=== PATIENT | male | born 1955 | race American Indian/Alaskan Native ===

== ENCOUNTER 2017-04-16 18:32 | Inpatient (IN) | payer MEDICAID ==
[2017-04-16 19:29] LABS: Basophils % (Auto) 0.6 % (0.0-1.8); Eosinophils % (Auto) 2.5 % (0.0-4.3); Hematocrit 27.4 % (35.5-45.6); Hemoglobin 9.3 gm/dl (11.8-15.2); Mean Corpuscular HGB Conc 34 % (32-34); Mean Corpuscular Hemoglobin 30 pg (28-32); Mean Corpuscular Volume 89 fl (84-94); Red Blood Count 3.08 M/mm3 (3.65-5.03); White Blood Count 3.1 K/mm3 (4.5-11.0)
[2017-04-16 19:39] LABS: INR 3.77 (0.87-1.13)
--- NOTE | 2017-04-16 19:39 | Emergency Department Report ---
ED Chest Pain HPI - General Chief Complaint: Chest Pain Stated Complaint: CHEST PAIN Time Seen by Provider: 04/16/17 19:12 Source: patient, EMS Mode of arrival: Stretcher Limitations: No Limitations - History of Present Illness MD Complaint: chest pain -: Gradual Onset: during rest Pain Location: left chest Pain Radiation: neck Severity: mild Severity scale (0 -10): 3 Quality: tightness Consistency: constant Improves With: nothing Worsens With: eating re: nausea - Related Data Allergies Allergy/AdvReac Type Severity Reaction Status Date / Time codeine Allergy Unknown Verified 04/16/17 18:44 Heart Score - HEART Score History: Highly suspicious EKG: Non-specific Age: 45-65 Risk factors: > 3 risk factors or hx of atherosclerotic disease Troponin: 1-3x normal limit HEART Score: 7 - Critical Actions Critical Actions: 4-6 pts:12-16.6% risk of adverse cardiac event. Should be admitted ED Review of Systems ROS: Stated complaint: CHEST PAIN Other details as noted in HPI Comment: All other systems reviewed and negative Cardiovascular: chest pain, dyspnea on exertion Gastrointestinal: nausea Musculoskeletal: as per HPI ED Past Medical Hx - Past Medical History Previous Medical History?: Yes Hx Hypertension: Yes Hx Congestive Heart Failure: Yes Hx Diabetes: Yes Hx GERD: Yes Hx Renal Disease: Yes (dialysis m,w,f) Hx HIV: Yes Additional medical history: iron deficiency anemia. hyperlipidemia. end stage renal disease. alcoholic liver disease - Surgical History Past Surgical History?: Yes Additional Surgical History: fistula right upper arm - Social History Smoking Status: Never Smoker Substance Use Type: None ED Physical Exam - General Limitations: No Limitations General appearance: alert, in no apparent distress - Head Head exam: Present: atraumatic - Eye Eye exam: Present: normal appearance - ENT ENT exam: Present: normal exam - Neck Neck exam: Present: normal inspection - Cardiovascular Cardiovascular Exam: Present: regular rate, normal rhythm - GI/Abdominal GI/Abdominal exam: Present: soft - Neurological Exam Neurological exam: Present: alert, oriented X3 ED Course Vital Signs 04/16/17 04/16/17 18:37 20:20 Temperature 98.0 F Pulse Rate 75 89 Respiratory 18 18 Rate Blood Pressure 111/70 O2 Sat by Pulse 100 98 Oximetry - Reevaluation(s) Reevaluation #1: 04/16/17 21:34 Patient continued to have pain, we will admit for observation and cardiac event ruled out. ED Medical Decision Making - Lab Data Result diagrams: 04/16/17 19:08 04/16/17 19:08 Critical care attestation.: If time is entered above; I have spent that time in minutes in the direct care of this critically ill patient, excluding procedure time. ED Disposition Clinical Impression: Non-STEMI (non-ST elevated myocardial infarction) Disposition: - OP ADMIT IP TO THIS HOSP Is pt being admited?: Yes Does the pt Need Aspirin: Yes Condition: Stable Referrals: PRIMARY CARE,MD [Primary Care Provider] - 3-5 Days
[2017-04-16 19:45] LABS: Partial Thromboplastin Time 60.8 Sec. (24.2-36.6)
[2017-04-16 20:15] LABS: Platelet Count 93 K/mm3 (140-440)
[2017-04-16 20:21] LABS: BUN/Creatinine Ratio 4.07; Calcium 7.9 mg/dL (8.4-10.2); Potassium 4.8 mmol/L (3.6-5.0)
[2017-04-16] MEDS ORDERED: ASPIRIN PO ONE (21:34)
--- NOTE | 2017-04-16 22:02 | History and Physical Report ---
History of Present Illness Date of examination: 04/16/17 Date of admission: 04/16/17 Chief complaint: Chest pain History of present illness: Patient is 61-year-old with history of hypertension, HIV, diabetes and end- stage renal disease on dialysis Saturday. He presents with chest pain. Chest pain is 10 out of 10, left-sided, like a pressure. There was no radiation. Chest pain worse on exertion. Pain continued for several hours therefore brought to ED. He is a resident at a longterm facility and was therefore brought to the emergency department for further evaluation. His troponins was elevated he was given aspirin and is being admitted for further management. Past History Past Medical History: diabetes, GERD, heart failure, HIV/AIDS, hypertension Past Surgical History: Other (fistula for dialysis) Social history: full code, other (lives in Jail). denies: smoking, alcohol abuse Family history: no significant family history Medications and Allergies Allergies Allergy/AdvReac Type Severity Reaction Status Date / Time codeine Allergy Unknown Verified 04/16/17 18:44 Home Medications Medication Instructions Recorded Confirmed Last Taken Type Amiodarone [Cordarone 200 MG TAB] 200 mg PO QDAY 04/16/17 04/16/17 Unknown History Aspirin [Aspirin BABY CHEW TAB] 81 mg PO QDAY 04/16/17 04/16/17 Unknown History AtorvaSTATin [Lipitor] 40 mg PO QHS 04/16/17 04/16/17 Unknown History Azithromycin [Zithromax TAB] 600 mg PO QWEEK 04/16/17 04/16/17 Unknown History Benzonatate [Tessalon Perles] 100 mg PO Q8HR PRN 04/16/17 04/16/17 Unknown History Carvedilol [Coreg] 25 mg PO BID 04/16/17 04/16/17 Unknown History Cinacalcet HCl [Sensipar] 60 mg PO DAILY 04/16/17 04/16/17 Unknown History Esomeprazole Magnesium [NexIUM] 40 mg PO QDAY 04/16/17 04/16/17 Unknown History Folic Acid [Folvite] 1 mg PO QDAY 04/16/17 04/16/17 Unknown History Hydroxyzine HCl 25 mg PO DAILY PRN 04/16/17 04/16/17 Unknown History ISOSORBIDE MONOnitrate [Imdur ER] 30 mg PO DAILY 04/16/17 04/16/17 Unknown History Ipratropium/Albuterol Sulfate 1 ampul IH Q6HR PRN 04/16/17 04/16/17 Unknown History [DUONEB *Not for PRN Use*] Lisinopril [Zestril TAB] 10 mg PO QDAY 04/16/17 04/16/17 Unknown History Multivitamin Tab [Multiple Vitamin 1 each PO QDAY 04/16/17 04/16/17 Unknown History TAB (Theragran)] Sennosides [Senna] 8.6 mg PO QHS 04/16/17 04/16/17 Unknown History Sevelamer Carbonate [Renvela] 800 mg PO TIDWM 04/16/17 04/16/17 Unknown History Sulfamethoxazole/Trimethoprim 1 each PO 3XW 04/16/17 04/16/17 Unknown History [Bactrim 400-80 mg] Warfarin [Coumadin] 5 mg PO QDAY 04/16/17 04/16/17 Unknown History amLODIPine [Norvasc] 10 mg PO DAILY 04/16/17 04/16/17 Unknown History hydrALAZINE [Apresoline TAB] 100 mg PO Q8HR 04/16/17 04/16/17 Unknown History traMADol [Ultram] 50 mg PO Q6HR PRN 04/16/17 04/16/17 Unknown History Review of Systems All systems: negative (no fever, no cough, no syncope, no abdominal pain,no urinary symptoms. All other systems reviewed and are negative) Exam - Physical Exam Narrative exam: Gen appearance: not in acute distress HEENT: normocephalic atraumatic Neck:supple, no JVD Lungs: clear to auscultation bilaterally, no crackles or wheezes Heart :S1 and S2 regular, no murmurs, rubs or gallop Abdomen: Soft, non-tender, non-distended, normal bowel sounds Extremities :no edema no clubbing or cyanosis Neuro: Awake alert oriented 3, no focal neurological signs Psych: normal mood - Constitutional Vitals: Temp Pulse Resp BP Pulse Ox 98.0 F 89 18 111/70 98 04/16/17 18:37 04/16/17 20:20 04/16/17 20:20 04/16/17 18:37 08/08/17 20:20 Results - Labs CBC & Chem 7: 04/16/17 19:08 04/16/17 19:08 Labs: Abnormal lab results 04/16/17 04/16/17 04/16/17 Range/Units 19:08 19:08 19:08 WBC 3.1 L (4.5-11.0) K/mm3 RBC 3.08 L (3.65-5.03) M/mm3 Hgb 9.3 L (11.8-15.2) gm/dl Hct 27.4 L (35.5-45.6) % RDW 16.0 H (13.2-15.2) % Plt Count 93 L (140-440) K/mm3 [place] % (Auto) 15.1 H (0.0-7.3) % Lymph # 0.9 L (1.2-5.4) K/mm3 Seg Neutrophils # 1.7 L (1.8-7.7) K/mm3 PT 39.3 H (12.2-14.9) Sec. INR 3.77 H (0.87-1.13) APTT 60.8 H* (24.2-36.6) Sec. Chloride 96.0 L (98-107) mmol/L BUN 33 H (9-20) mg/dL Creatinine 8.1 H (0.8-1.5) mg/dL Calcium 7.9 L (8.4-10.2) mg/dL Troponin T 0.681 H* (0.00-0.029) ng/mL HDL Cholesterol 39 L (40-59) mg/dL Assessment and Plan Chest pain with elevated Troponin. To rule out acute coronary syndrome/NSTEMI. Admit to telemetry. Aspirin given. Add Nitropaste every 6 hours. Obtain stress test in the morning if okay with cardiology. Cardiology consulted. Elevated Troponin. may be due to ESRD. To rule out NSTEMI ESRD on hemodialysis. He goes for dialysis Wednesdays and Fridays. Consult nephrology for management of end-stage renal disease. HIV infection. Supratherapeutic INR of 3.77. Hold Coumadin and resume when INR becomes therapeutic. Diabetes mellitus type II. Check fingerstick glucose before every meal and at bedtime. Chronic CHF. Resume Coreg.Obtain echocardiogram Full CODE STATUS
[2017-04-16] MEDS ORDERED: DULCOLAX PR PRN (22:12)
[2017-04-16] MEDS ORDERED: TYLENOL PO PRN (22:12)
[2017-04-16] MEDS ORDERED: ZOFRAN IV PRN (22:12)
[2017-04-16] MEDS ORDERED: ASPIRIN ONE (22:52)
[2017-04-16] MEDS ORDERED: TYLENOL ONE (22:53)
[2017-04-16] MEDS ORDERED: ULTRAM PO PRN (23:36)
[2017-04-16] MEDS ORDERED: DUONEB *Not for PRN Use IH (23:36)
[2017-04-16] MEDS ORDERED: HYDROXYZINE HCL 25 MG PO PRN (23:36)
[2017-04-16] MEDS ORDERED: TESSALON PERLES PO PRN (23:36)
[2017-04-16] MEDS ORDERED: ATARAX PO PRN (23:52)
[2017-04-16] MEDS ORDERED: PROVENTIL IH PRN (23:56)
--- NOTE | 2017-04-17 01:30 | Admit Criteria Form ---
Admission Criteria Documentation: MYOCARDIAL INFARCTION Clinical Indications for Admission to Inpatient Care (Place 'X' for any and all applicable criteria): Admission is indicated for 1 or more of the following (1)(2)(3)(4): [X]I. Acute MT [ ]II. Contraindications and/or Inappropriate clinical situations for Observational Care in patients with Myocardial Infarction, when ANY ONE of the following is required: [ ]a) Patient with High risk of cardiac embolism (e.g, patients with previous cardiac embolism, LVEF < 40%, age >75 and patients with prosthetic valve) 18 [ ]b) Patient with Moderate risk including DM patient, CAD and patient aged 65-75 18 [ ]c) Patient with any change in cardiac biomarker especially troponin should be managed as high risk in an inpatient setting 19 [ ]d) Physician judgement irrespective of ECG and other diagnostic findings 20 [ ]III.General contraindications and/or Inappropriate clinical situations for Observational Care in patients with Myocardial Infarction, when ANY ONE of the following is required: [ ]a) Prediction of prolongation of LOS based on ANY ONE of the following may be considered as a contraindication for observational care 2, 3, 4, 5, 6, 7, 8, 9, 10, 11 [ ]i) Age > 65 yrs. [ ]ii) Patient arriving by ambulance [ ]iii) Patient with high acuity [ ]iv) Patient requiring vital sign monitoring [ ]v) Patient on IV medication [ ]b) Systolic blood pressures greater than or equal to 180mmHg 3,12 [ ]c) Patient with altered mental status including delirium and other alteration of consciousness, (3) [ ]d) Patient whose discharge disposition will be to a [facility] home or rehabilitation home should not be managed in Emergency Department Observation Unit. CMS rule requires 3 days hospital stay before such placement. 3,13 [ ]e) Patient with failure to thrive due to broad array of etiologies 3 ,16,17 [ ]f) Inability to ambulate 3,14 Extended stay beyond goal length of stay may be needed for (1)(18)(20)(24)(25): [ ]a) Hemodynamic instability, persisting symptoms after intensive medical management, or recurring severe, prolonged symptoms [ ]b) Intravascular procedural complications such as acute vessel closure, stent thrombosis, stent malposition, or vessel dissection (26)(27)(28) [ ]c) Extravascular procedural complications such as retroperitoneal hematoma , pericardial effusion, or cardiac tamponade [ ]d) Entry site complications causing bleeding, hematoma or distal ischemia and requiring ongoing monitoring, surgical repair or surgical thrombectomy. Dangerous arrhythmia [ ]e) Complicated percutaneous coronary intervention (e.g., unsuccessful percutaneous coronary intervention or percutaneous coronary intervention of non- [place] vessel) [ ]f) Urgent or emergent surgery for complications of MT (e.g., ventricular rupture, valvular insufficiency) [ ]g) Surgical revascularization via coronary artery bypass graft [ ]h) Heart failure (e.g., pulmonary edema) [ ]i) Unstable pulmonary comorbidities, including COPD or pneumonia (31) [ ]j) Acute renal failure The original [employer] content created by [employer] has been revised. The portions of the content which have been revised are identified through the use of italic text or in bold, and [employer] has neither reviewed nor approved the modified material. All other unmodified content is copyright [facility] [employer] Please see references footnoted in the original [facility] edition 2016 Admission Criteria Met: Yes
[2017-04-17] MEDS ORDERED: SODIUM CHLORIDE FLUSH SYRINGE 10 ML IV PRN (02:18)
[2017-04-17 05:42] LABS: Hematocrit 26.4 % (35.5-45.6); Mean Corpuscular HGB Conc 34 % (32-34); Mean Corpuscular Hemoglobin 30 pg (28-32); Mean Corpuscular Volume 89 fl (84-94); Red Blood Count 2.97 M/mm3 (3.65-5.03); White Blood Count 2.7 K/mm3 (4.5-11.0)
[2017-04-17 05:48] LABS: Platelet Count 94 K/mm3 (140-440)
[2017-04-17 05:55] LABS: INR 3.96 (0.87-1.13)
[2017-04-17 06:03] LABS: Partial Thromboplastin Time 61.5 Sec. (24.2-36.6)
[2017-04-17 06:17] LABS: BUN/Creatinine Ratio 4.08; Calcium 7.5 mg/dL (8.4-10.2); Potassium 4.2 mmol/L (3.6-5.0)
[2017-04-17] MEDS: NITRO-BID 2% TP SCH ×4 (06:52→17:25)
[2017-04-17 06:54] LABS: Anisocytosis 1+; Blastocytes % (Manual) 0 %; Diff Status Complete; Platelet Estimate Consistent w Auto
--- NOTE | 2017-04-17 07:27 | XRay Report ---
AP CHEST: HISTORY: chest pain No comparison. There is mild cardiomegaly with normal pulmonary vascularity. The lungs are clear. No pleural effusion or pneumothorax. Left subclavian vascular stent is noted. The bony structures are intact. IMPRESSION: Mild cardiomegaly. Lungs clear.
[2017-04-17] MEDS: RENVELA PO SCH ×4 (08:53→17:08)
[2017-04-17] MEDS ORDERED: NON-FORMULARY (Esomeprazole Magnesium [Nexium] 40 MG) PO SCH (10:00)
[2017-04-17] MEDS ORDERED: BACTRIM DS PO SCH (10:00)
[2017-04-17] MEDS ORDERED: NON-FORMULARY (Cinacalcet Hcl [Sensipar] 60 MG) PO SCH (10:00)
[2017-04-17] MEDS ORDERED: TRIMETHOPRIM PO SCH (10:00)
[2017-04-17] MEDS ORDERED: SULFAMETHOXAZOLE PO SCH (10:00)
[2017-04-17] MEDS ORDERED: LEXISCAN IV ONE ×2 (11:20→11:24)
--- NOTE | 2017-04-17 11:49 | Discharge Summary ---
Providers - Providers Date of Admission: 04/16/17 22:12 Date of discharge: 04/18/17 Attending physician: ERIK ARAYA 04/16/17 22:17 Consult to Physician [CONS] Routine Consulting Provider: KWASI JIMÉNEZ Reason For Exam: Chest pain, elevated Troponin, on dialysis Place consult to:: Dr. Jiménez Notified:: Kerri SCHUSTER Phone number called:: Was contact made?: Yes If yes, spoke with:: [facility] Time called:: 08:00 Consult to Physician [CONS] Routine Consulting Provider: ALEX FAITH Reason For Exam: ESRD on dialysis Place consult to:: Dr. Faith Notified:: Kerri SCHUSTER Phone number called:: Was contact made?: Yes If yes, spoke with:: [facility] Time called:: 09:26 04/17/17 Consult to Cardiac Rehabilitation [CONS] Routine Reason For Exam: Phase I Primary care physician: RUTH BAUER MD Hospitalization Reason for admission: cp Condition: Stable Hospital course: Patient is 61-year-old with history of hypertension, HIV, diabetes and end- stage renal disease on dialysis Saturday who presented with chest pain described as 10 out of 10 intensity, left-sided and of a pressure quality. Patient denies radiation. Chest pain worse on exertion. Pain continued for several hours prior to admission therefore brought to ED. He is a resident at a [place] [facility] facility. Patient was noted to have elevated troponin. However, patient does have a history of ESRD which is likely etiology of the elevated troponin. Patient was seen by cardiology in consultation. Patient underwent stress thallium and echocardiogram. Disposition: TO HOME OR SELFCARE Core Measure Documentation - Palliative Care Palliative Care/ Comfort Measures: Not Applicable - Core Measures Any of the following diagnoses?: none Exam - Constitutional Vitals: Temp Pulse Resp BP Pulse Ox 97.6 F 72 18 159/71 100 04/17/17 08:00 04/17/17 08:00 04/17/17 08:00 04/17/17 08:00 04/17/17 08:00 Plan Activity: no restrictions Weight Bearing Status: Full Weight Bearing Follow up with: PRIMARY MD LIZETTE [Primary Care Provider] - 3-5 Days Forms: Warfarin Discharge Instruction Prescriptions: oxyCODONE /ACETAMINOPHEN [Percocet 5/325] 1 tab PO Q4HR #15 tab Pantoprazole [Protonix] 40 mg PO QDAY #30 tablet
--- NOTE | 2017-04-17 11:51 | Progress Note ---
Assessment and Plan Assessment and plan: Chest pain with elevated Troponin. Cont. to rule out acute coronary syndrome/ NSTEMI. Continue telemetry monitoring. Continue aspirin and Nitropaste.. Cardiology consultation pending. Await stress thallium and echocardiogram results. Elevated Troponin. Etiology may be due to ESRD. ESRD on hemodialysis. He goes for dialysis Wednesdays and Fridays. Consult nephrology for management of end-stage renal disease. HIV. Supratherapeutic INR of 3.77. Hold Coumadin and resume when INR becomes therapeutic. Diabetes mellitus type II. Check fingerstick glucose before every meal and at bedtime. Sliding scale regular insulin Chronic CHF. Resume Coreg. Full CODE STATUS History Interval history: Patient states he still complains of left-sided chest pain. Hospitalist Physical - Constitutional Vitals: Temp Pulse Resp BP Pulse Ox 97.6 F 72 18 159/71 100 04/17/17 08:00 04/17/17 08:00 04/17/17 08:00 04/17/17 08:00 04/17/17 08:00 General appearance: Present: no acute distress, well-nourished - EENT Eyes: Present: PERRL, EOM intact ENT: hearing intact, clear oral mucosa, dentition normal - Neck Neck: Present: supple, normal ROM - Respiratory Respiratory effort: normal Respiratory: bilateral: CTA - Cardiovascular Rhythm: regular Heart Sounds: Present: S1 & S2. Absent: gallop, rub - Extremities Extremities: no ischemia, No edema, Full ROM - Abdominal General gastrointestinal: soft, non-tender, non-distended, normal bowel sounds - Integumentary Integumentary: Present: clear, warm, dry - Neurologic Neurologic: CNII-XII intact, moves all extremities Results - Labs CBC & Chem 7: 04/17/17 04:48 04/17/17 04:48 Labs: Laboratory Last Values WBC 2.7 K/mm3 (4.5-11.0) L 04/17/17 04:48 RBC 2.97 M/mm3 (3.65-5.03) L 04/17/17 04:48 Hgb 9.0 gm/dl (11.8-15.2) L 04/17/17 04:48 Hct 26.4 % (35.5-45.6) L 04/17/17 04:48 MCV 89 fl (84-94) 04/17/17 04:48 MCH 30 pg (28-32) 04/17/17 04:48 MCHC 34 % (32-34) 04/17/17 04:48 RDW 16.0 % (13.2-15.2) H 04/17/17 04:48 Plt Count 94 K/mm3 (140-440) L 04/17/17 04:48 Lymph % (Auto) 28.4 % (13.4-35.0) 04/16/17 19:08 [place] % (Auto) Inner Tube Inserter 04/17/17 04:48 Eos % (Auto) 2.5 % (0.0-4.3) 04/16/17 19:08 Baso % (Auto) 0.6 % (0.0-1.8) 04/16/17 19:08 Lymph # 0.9 K/mm3 (1.2-5.4) L 04/16/17 19:08 [place] # 0.5 K/mm3 (0.0-0.8) 04/16/17 19:08 Eos # 0.1 K/mm3 (0.0-0.4) 04/16/17 19:08 Baso # 0.0 K/mm3 (0.0-0.1) 04/16/17 19:08 Add Manual Diff Complete 04/17/17 04:48 Total Counted 100 04/17/17 04:48 Seg Neutrophils % 53.4 % (40.0-70.0) 04/16/17 19:08 Seg Neuts % (Manual) 46.0 % (40.0-70.0) 04/17/17 04:48 Band Neutrophils % 0 % 04/17/17 04:48 Lymphocytes % (Manual) 30.0 % (13.4-35.0) 04/17/17 04:48 Reactive Lymphs % (Man) 0 % 04/17/17 04:48 Monocytes % (Manual) 18.0 % (0.0-7.3) H 04/17/17 04:48 Eosinophils % (Manual) 4.0 % (0.0-4.3) 04/17/17 04:48 Basophils % (Manual) 2.0 % (0.0-1.8) H 04/17/17 04:48 Metamyelocytes % 0 % 04/17/17 04:48 Myelocytes % 0 % 04/17/17 04:48 Promyelocytes % 0 % 04/17/17 04:48 Blast Cells % 0 % 04/17/17 04:48 Nucleated RBC % Not Reportable 04/17/17 04:48 Seg Neutrophils # 1.7 K/mm3 (1.8-7.7) L 04/16/17 19:08 Seg Neutrophils # Man 1.2 K/mm3 (1.8-7.7) L 04/17/17 04:48 Band Neutrophils # 0.0 K/mm3 04/17/17 04:48 Lymphocytes # (Manual) 0.8 K/mm3 (1.2-5.4) L 04/17/17 04:48 Abs React Lymphs (Man) 0.0 K/mm3 04/17/17 04:48 Monocytes # (Manual) 0.5 K/mm3 (0.0-0.8) 04/17/17 04:48 Eosinophils # (Manual) 0.1 K/mm3 (0.0-0.4) 04/17/17 04:48 Basophils # (Manual) 0.1 K/mm3 (0.0-0.1) 04/17/17 04:48 Metamyelocytes # 0.0 K/mm3 04/17/17 04:48 Myelocytes # 0.0 K/mm3 04/17/17 04:48 Promyelocytes # 0.0 K/mm3 04/17/17 04:48 Blast Cells # 0.0 K/mm3 04/17/17 04:48 WBC Morphology Not Reportable 04/17/17 04:48 Hypersegmented Neuts Not Reportable 04/17/17 04:48 Hyposegmented Neuts Not Reportable 04/17/17 04:48 Hypogranular Neuts Not Reportable 04/17/17 04:48 Smudge Cells Not Reportable 04/17/17 04:48 Toxic Granulation Not Reportable 04/17/17 04:48 Toxic Vacuolation Not Reportable 04/17/17 04:48 Dohle Bodies Not Reportable 04/17/17 04:48 Pelger-Huet Anomaly Not Reportable 04/17/17 04:48 Genet Rods Not Reportable 04/17/17 04:48 Platelet Estimate Consistent w auto 04/17/17 04:48 Clumped Platelets Not Reportable 04/17/17 04:48 Plt Clumps, EDTA Not Reportable 04/17/17 04:48 Large Platelets Not Reportable 04/17/17 04:48 Giant Platelets Not Reportable 04/17/17 04:48 Platelet Satelliting Not Reportable 04/17/17 04:48 Plt Morphology Comment Not Reportable 04/17/17 04:48 RBC Morphology Not Reportable 04/17/17 04:48 Dimorphic RBCs Not Reportable 04/17/17 04:48 Polychromasia Not Reportable 04/17/17 04:48 Hypochromasia Not Reportable 04/17/17 04:48 Poikilocytosis Not Reportable 04/17/17 04:48 Anisocytosis 1+ 04/17/17 04:48 Microcytosis Not Reportable 04/17/17 04:48 Macrocytosis Not Reportable 04/17/17 04:48 Spherocytes Not Reportable 04/17/17 04:48 Pappenheimer Bodies Not Reportable 04/17/17 04:48 Sickle Cells Not Reportable 04/17/17 04:48 Target Cells Not Reportable 04/17/17 04:48 Tear Drop Cells Not Reportable 04/17/17 04:48 Ovalocytes Not Reportable 04/17/17 04:48 Helmet Cells Not Reportable 04/17/17 04:48 [place] Bodies Not Reportable 04/17/17 04:48 [place] Rings Not Reportable 04/17/17 04:48 [place] Cells Not Reportable 04/17/17 04:48 Bite Cells Not Reportable 04/17/17 04:48 Crenated Cell Not Reportable 04/17/17 04:48 Elliptocytes Not Reportable 04/17/17 04:48 Acanthocytes (Spur) Not Reportable 04/17/17 04:48 Rouleaux Not Reportable 04/17/17 04:48 Hemoglobin C Crystals Not Reportable 04/17/17 04:48 Schistocytes Not Reportable 04/17/17 04:48 Malaria parasites Not Reportable 04/17/17 04:48 [place] Bodies Not Reportable 04/17/17 04:48 Hem Pathologist Commnt No 04/17/17 04:48 PT 40.8 Sec. (12.2-14.9) H 04/17/17 04:48 INR 3.96 (0.87-1.13) H 04/17/17 04:48 APTT 61.5 Sec. (24.2-36.6) H* 04/17/17 04:48 Sodium 139 mmol/L (137-145) 04/17/17 04:48 Potassium 4.2 mmol/L (3.6-5.0) 04/17/17 04:48 Chloride 98.0 mmol/L (98-107) 04/17/17 04:48 Carbon Dioxide 27 mmol/L (22-30) 04/17/17 04:48 Anion Gap 18 mmol/L 04/17/17 04:48 BUN 38 mg/dL (9-20) H 04/17/17 04:48 Creatinine 9.3 mg/dL (0.8-1.5) H 04/17/17 04:48 Estimated GFR 7 ml/min 04/17/17 04:48 BUN/Creatinine Ratio 4.08 % 04/17/17 04:48 Glucose 72 mg/dL (75-100) L 04/17/17 04:48 Calcium 7.5 mg/dL (8.4-10.2) L 04/17/17 04:48 Troponin T 0.606 ng/mL (0.00-0.029) H* 04/17/17 00:45 Triglycerides 107 mg/dL (2-149) 04/16/17 19:08 Cholesterol 149 mg/dL (50-199) 04/16/17 19:08 LDL Cholesterol Direct 89 mg/dL (50-130) 04/16/17 19:08 HDL Cholesterol 39 mg/dL (40-59) L 04/16/17 19:08 Cholesterol/HDL Ratio 3.82 % 04/16/17 19:08
[2017-04-17] MEDS: ASPIRIN PO SCH (13:03)
[2017-04-17] MEDS: CORDARONE PO SCH (13:03)
[2017-04-17] MEDS: FOLVITE PO SCH (13:04)
[2017-04-17] MEDS: COREG PO SCH ×2 (13:04→21:45)
[2017-04-17] MEDS: IMDUR PO SCH (13:04)
[2017-04-17] MEDS: SENSIPAR PO SCH (13:05)
[2017-04-17] MEDS: THERAGRAN Tab PO SCH (13:05)
[2017-04-17] MEDS: PROTONIX PO SCH (13:05)
[2017-04-17] MEDS: NORVASC PO SCH (13:05)
[2017-04-17] MEDS: ZESTRIL PO SCH (13:06)
--- NOTE | 2017-04-17 13:27 | Consultation ---
History of Present Illness Consult date: 04/17/17 Consult reason: chest pain History of present illness: 61 year old male presenting with atypical retrosternal chest pain, poorly characterized. Patient is a poor historian. His past medical history is pertinent for ESRD on HD x 11 hears and HIV. He is currently asymptomatic. No arrhythmias recorded on tele. ECG is showing SR with a prolonged QT interval. 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 denies: smoking, alcohol abuse Family history: no significant family history Medications and Allergies Allergies Allergy/AdvReac Type Severity Reaction Status Date / Time codeine Allergy Unknown Verified 04/16/17 18:44 Home Medications Medication Instructions Recorded Confirmed Last Taken Type Amiodarone [Cordarone 200 MG TAB] 200 mg PO QDAY 04/16/17 04/16/17 Unknown History Aspirin [Aspirin BABY CHEW TAB] 81 mg PO QDAY 04/16/17 04/16/17 Unknown History AtorvaSTATin [Lipitor] 40 mg PO QHS 04/16/17 04/16/17 Unknown History Azithromycin [Zithromax TAB] 600 mg PO QWEEK 04/16/17 04/16/17 Unknown History Benzonatate [Tessalon Perles] 100 mg PO Q8HR PRN 04/16/17 04/16/17 Unknown History Carvedilol [Coreg] 25 mg PO BID 04/16/17 04/16/17 Unknown History Cinacalcet HCl [Sensipar] 60 mg PO DAILY 04/16/17 04/16/17 Unknown History Esomeprazole Magnesium [NexIUM] 40 mg PO QDAY 04/16/17 04/16/17 Unknown History Folic Acid [Folvite] 1 mg PO QDAY 04/16/17 04/16/17 Unknown History Hydroxyzine HCl 25 mg PO DAILY PRN 04/16/17 04/16/17 Unknown History ISOSORBIDE MONOnitrate [Imdur ER] 30 mg PO DAILY 04/16/17 04/16/17 Unknown History Ipratropium/Albuterol Sulfate 1 ampul IH Q6HR PRN 04/16/17 04/16/17 Unknown History [DUONEB *Not for PRN Use*] Lisinopril [Zestril TAB] 10 mg PO QDAY 04/16/17 04/16/17 Unknown History Multivitamin Tab [Multiple Vitamin 1 each PO QDAY 04/16/17 04/16/17 Unknown History TAB (Theragran)] Sennosides [Senna] 8.6 mg PO QHS 04/16/17 04/16/17 Unknown History Sevelamer Carbonate [Renvela] 800 mg PO TIDWM 04/16/17 04/16/17 Unknown History Sulfamethoxazole/Trimethoprim 1 each PO 3XW 04/16/17 04/16/17 Unknown History [Bactrim 400-80 mg] Warfarin [Coumadin] 5 mg PO QDAY 04/16/17 04/16/17 Unknown History amLODIPine [Norvasc] 10 mg PO DAILY 04/16/17 04/16/17 Unknown History hydrALAZINE [Apresoline TAB] 100 mg PO Q8HR 04/16/17 04/16/17 Unknown History traMADol [Ultram] 50 mg PO Q6HR PRN 04/16/17 04/16/17 Unknown History Active Meds: Active Medications Acetaminophen (Tylenol) 650 mg PO Q4H PRN PRN Reason: Pain MILD(1-3)/Fever >100.5/JEFFERY Last Admin: 04/16/17 23:12 Dose: 650 mg Albuterol (Proventil) 2.5 mg IH Q4HRT PRN PRN Reason: Shortness Of Breath Amiodarone HCl (Cordarone) 200 mg PO QDAY [facility] Last Admin: 04/17/17 13:03 Dose: Not Given Amlodipine Besylate (Norvasc) 10 mg PO DAILY [facility] Last Admin: 04/17/17 13:05 Dose: Not Given Aspirin (Aspirin) 325 mg PO QDAY [facility] Last Admin: 04/17/17 13:03 Dose: Not Given Atorvastatin Calcium (Lipitor) 40 mg PO QHS [facility] Benzonatate (Tessalon Perles) 100 mg PO Q8HR PRN PRN Reason: Cough Bisacodyl (Dulcolax) 10 mg [place] QDAY PRN PRN Reason: Constipation unrelieved by MOM Carvedilol (Coreg) 25 mg PO BID [facility] Last Admin: 04/17/17 13:04 Dose: Not Given Cinacalcet (Sensipar) 60 mg PO QDAY [facility] Last Admin: 04/17/17 13:05 Dose: Not Given Folic Acid (Folvite) 1 mg PO QDAY [facility] Last Admin: 04/17/17 13:04 Dose: Not Given Hydroxyzine HCl (Atarax) 25 mg PO DAILY PRN PRN Reason: Itching Isosorbide Mononitrate (Imdur) 30 mg PO DAILY [facility] Last Admin: 04/17/17 13:04 Dose: Not Given Lisinopril (Zestril) 10 mg PO QDAY [facility] Last Admin: 04/17/17 13:06 Dose: Not Given Multivitamins (Theragran Tab) 1 each PO QDAY [facility] Last Admin: 04/17/17 13:05 Dose: Not Given Nitroglycerin (Nitro-Bid 2%) 0.5 inch TP QIDNTG [facility] PRN Reason: Protocol Last Admin: 04/17/17 13:05 Dose: Not Given Ondansetron HCl (Zofran) 4 mg IV Q6H PRN PRN Reason: nausea or vomiting Pantoprazole Sodium (Protonix) 40 mg PO DAILY [facility] Last Admin: 04/17/17 13:05 Dose: Not Given Senna (Senokot) 8.6 mg PO QHS [facility] Sevelamer Carbonate (Renvela) 800 mg PO TIDWM [facility] Last Admin: 04/17/17 13:06 Dose: Not Given Sodium Chloride (Sodium Chloride Flush Syringe 10 Ml) 10 ml IV PRN PRN PRN Reason: LINE FLUSH Tramadol HCl (Ultram) 50 mg PO Q6HR PRN PRN Reason: Pain Last Admin: 04/17/17 01:14 Dose: 50 mg Trimethoprim/Sulfamethoxazole (Bactrim Ds) 0.5 each PO MoWeFr [facility] Last Admin: 04/17/17 13:03 Dose: Not Given Warfarin Sodium (Coumadin Pharmacy To Dose) 1 each PO PKCONSULT [facility] PRN Reason: Protocol Review of Systems ROS unobtainable: due to mental status Physical Examination Vital Signs BP Pulse Ox 119/90 85 04/16/17 18:24 04/16/17 18:24 General appearance: no acute distress HEENT: Positive: PERRL Neck: Positive: neck supple Cardiac: Positive: Reg Rate and Rhythm Lungs: Positive: Normal Exam Abdomen: Positive: Soft Extremities: Absent: edema Results 04/17/17 04:48 04/17/17 04:48 Coagulation 04/17/17 Range/Units 04:48 PT 40.8 H (12.2-14.9) Sec. INR 3.96 H (0.87-1.13) APTT 61.5 H* (24.2-36.6) Sec. CBC 04/17/17 Range/Units 04:48 WBC 2.7 L (4.5-11.0) K/mm3 RBC 2.97 L (3.65-5.03) M/mm3 Hgb 9.0 L (11.8-15.2) gm/dl Hct 26.4 L (35.5-45.6) % Plt Count 94 L (140-440) K/mm3 Comprehensive Metabolic Panel 04/17/17 Range/Units 04:48 Sodium 139 (137-145) mmol/L Potassium 4.2 (3.6-5.0) mmol/L Chloride 98.0 (98-107) mmol/L Carbon Dioxide 27 (22-30) mmol/L BUN 38 H (9-20) mg/dL Creatinine 9.3 H (0.8-1.5) mg/dL Glucose 72 L (75-100) mg/dL Calcium 7.5 L (8.4-10.2) mg/dL EKG interpretations - Telemetry EKG Rhythm: Sinus Rhythm Assessment and Plan Atypical, poorly characterized chest pain Normal MPI Normal LVEF by echo (severe LVH) Moderate calcific mitral stenosis with mild to moderate mitral regurgitation Abnormal ECG showing prolonged QT interval Pancytopenia ESRD on HD x 11 years Non-specific troponin in the setting of ESRD HIV Poor historian Not quite sure why patient is on coumadin and amiodarone (I believe it is for afib) Recommendations: No further cardiac work-up is needed Continue current management Hold coumadin until INR < 3 Avoid QT prolonging medications Follow-up with primary provider as outpatient
[2017-04-17] MEDS ORDERED: PROCRIT IV PRN (16:20)
[2017-04-17] MEDS ORDERED: NACL 0.9% 100 ML IV PRN (16:20)
[2017-04-17] MEDS ORDERED: NACL 0.9 (PRIMING MACHINE ONLY DIALYSIS) MC ONE (18:04)
--- NOTE | 2017-04-17 21:07 | Treadmill Report ---
INDICATION: Chest pain. ORDERING PHYSICIAN: Dr. Marvin Quesada. FINDINGS: There is no scintigraphic evidence of myocardial ischemia. The left ventricle is normal in size. The left ventricular ejection fraction is measured at 47%. Normal wall motion and wall thickening is noted on gated imaging. CONCLUSION: 1. No scintigraphic evidence of myocardial ischemia. 2. Normal wall motion and wall thickening noted on gated imaging. Left ventricular ejection fraction measured at 47%. Clinical correlation with a transthoracic echocardiogram is recommended. JOB# [id number] MAYA/NTS
[2017-04-17] MEDS ORDERED: SENOKOT PO SCH (22:00)
[2017-04-18] MEDS: NITRO-BID 2% TP SCH ×2 (05:22→10:15)
--- NOTE | 2017-04-18 07:58 | Discharge Summary ---
Providers - Providers Date of Admission: 04/16/17 22:12 Date of discharge: 04/18/17 Attending physician: ERIK ARAYA 04/16/17 22:17 Consult to Physician [CONS] Routine Consulting Provider: KWASI JIMÉNEZ Reason For Exam: Chest pain, elevated Troponin, on dialysis Place consult to:: Dr. Jiménez Notified:: Kerri SCHUSTER Phone number called:: Was contact made?: Yes If yes, spoke with:: [facility] Time called:: 08:00 Consult to Physician [CONS] Routine Consulting Provider: ALEX FAITH Reason For Exam: ESRD on dialysis Place consult to:: Dr. Faith Notified:: Kerri SCHUSTER Phone number called:: Was contact made?: Yes If yes, spoke with:: [facility] Time called:: 09:26 04/17/17 Consult to Cardiac Rehabilitation [CONS] Routine Reason For Exam: Phase I Primary care physician: [employer] Hospitalization Reason for admission: chest pain Condition: Stable Hospital course: 61-year-old male with past medical history significant for diabetes mellitus type 2, ESRD, GERD, heart failure, HIV and hypertension who presented through the emergency department with complaints of chest pain. Patient has pain was atypical and poorly characterized. The location of the pain was felt to be retrosternal. Patient is an extremely poor historian. Patient was monitored on telemetry and had no arrhythmia. EKG revealed normal sinus rhythm with prolonged QT interval. Patient was noted to have elevated troponin which was felt to be secondary to his renal disease. Patient underwent a stress thallium which was found to be normal. Echocardiogram showed a normal LVEF with severe LVH. Moderate calcific mitral stenosis with mild to moderate mitral regurgitation. Cardiology saw the patient in consultation and felt that no further cardiac workup was needed. Cardiology recommended continue current medical management and follow-up with his primary care provider as an outpatient. Patient was also seen by nephrology in consultation and underwent hemodialysis prior to discharge. Etiology of chest pain also be secondary to GERD. Patient will be discharged with Protonix. Dedicated discharge time 31 minutes. Disposition: - TO HOME OR SELFCARE Time spent for discharge: 31 - Discharge Diagnoses (1) Chest pain Status: Acute Qualifiers: Chest pain type: C Ischemic chest pain type: I (2) Diabetes mellitus Status: Acute Qualifiers: Diabetes mellitus type: D Diabetes mellitus complication status: D Diabetes mellitus complication detail: D Diabetic retinopathy severity: D Proliferative retinopathy type: P Diabetes mellitus macular edema: D Diabetes mellitus jail insulin use: D Laterality: L Chronic kidney disease stage: C (3) ESRD (end stage renal disease) Status: Acute (4) HIV (human immunodeficiency virus infection) Status: Acute (5) LVH (left ventricular hypertrophy) Status: Acute (6) GERD (gastroesophageal reflux disease) Status: Acute Qualifiers: Esophagitis presence: E Core Measure Documentation - Palliative Care Palliative Care/ Comfort Measures: Not Applicable - Core Measures Any of the following diagnoses?: none Exam - Constitutional Vitals: Temp Pulse Resp BP Pulse Ox 98.9 F 81 20 123/50 98 04/18/17 05:59 04/18/17 05:59 04/18/17 05:59 04/18/17 05:59 04/18/17 05:59 General appearance: Present: no acute distress, well-nourished - EENT Eyes: Present: PERRL ENT: hearing intact, clear oral mucosa - Neck Neck: Present: supple, normal ROM - Respiratory Respiratory effort: normal Respiratory: bilateral: CTA - Cardiovascular Heart Sounds: Present: S1 & S2. Absent: rub, click - Extremities Extremities: pulses symmetrical, No edema Peripheral Pulses: within normal limits - Abdominal General gastrointestinal: Present: soft, non-tender, non-distended, normal bowel sounds Male genitourinary: Present: normal - Integumentary Integumentary: Present: clear, warm, dry - Musculoskeletal Musculoskeletal: gait normal, strength equal bilaterally - Psychiatric Psychiatric: appropriate mood/affect, intact judgment & insight - Neurologic Neurologic: CNII-XII intact, moves all extremities Plan Activity: no restrictions Weight Bearing Status: Full Weight Bearing Diet: renal Follow up with: PRIMARY CARE, [Primary Care Provider] - 3-5 Days Prescriptions: oxyCODONE /ACETAMINOPHEN [Percocet 5/325] 1 tab PO Q4HR #15 tab Pantoprazole [Protonix] 40 mg PO QDAY #30 tablet
[2017-04-18] MEDS: RENVELA PO SCH ×2 (08:00→12:50)
[2017-04-18] MEDS: COREG PO SCH (08:00)
[2017-04-18] MEDS: CORDARONE PO SCH (08:00)
[2017-04-18] MEDS: FOLVITE PO SCH (08:00)
[2017-04-18] MEDS: ASPIRIN PO SCH (08:05)
[2017-04-18] MEDS: IMDUR PO SCH (08:28)
[2017-04-18] MEDS: PROTONIX PO SCH (08:29)
[2017-04-18] MEDS: SENSIPAR PO SCH (08:29)
[2017-04-18] MEDS: NORVASC PO SCH (08:29)
[2017-04-18] MEDS: ZESTRIL PO SCH (08:29)
[2017-04-18] MEDS: THERAGRAN Tab PO SCH (08:29)
--- NOTE | 2017-04-18 08:43 | Consultation ---
History of Present Illness - Reason for Consult Consult date: 04/17/17 end stage renal disease - History of Present Illness Me Gallo is a 61yo w/ ESRD on HD MWF who presented to the ED with complaint of chest pain. He denies fever, chill, SOB and cough. He is s/p stress test today which was unremarkable. Past History Past Medical History: diabetes, GERD, heart failure, HIV/AIDS, hypertension Past Surgical History: Other (fistula for dialysis) Social history: full code, other (lives in Long-Term). denies: smoking, alcohol abuse Family history: no significant family history Medications and Allergies Allergies Allergy/AdvReac Type Severity Reaction Status Date / Time codeine Allergy Unknown Verified 04/16/17 18:44 Home Medications Medication Instructions Recorded Confirmed Last Taken Type Amiodarone [Cordarone 200 MG TAB] 200 mg PO QDAY 04/16/17 04/16/17 Unknown History Aspirin [Aspirin BABY CHEW TAB] 81 mg PO QDAY 04/16/17 04/16/17 Unknown History AtorvaSTATin [Lipitor] 40 mg PO QHS 04/16/17 04/16/17 Unknown History Azithromycin [Zithromax TAB] 600 mg PO QWEEK 04/16/17 04/16/17 Unknown History Benzonatate [Tessalon Perles] 100 mg PO Q8HR PRN 04/16/17 04/16/17 Unknown History Carvedilol [Coreg] 25 mg PO BID 04/16/17 04/16/17 Unknown History Cinacalcet HCl [Sensipar] 60 mg PO DAILY 04/16/17 04/16/17 Unknown History Esomeprazole Magnesium [NexIUM] 40 mg PO QDAY 04/16/17 04/16/17 Unknown History Folic Acid [Folvite] 1 mg PO QDAY 04/16/17 04/16/17 Unknown History Hydroxyzine HCl 25 mg PO DAILY PRN 04/16/17 04/16/17 Unknown History ISOSORBIDE MONOnitrate [Imdur ER] 30 mg PO DAILY 04/16/17 04/16/17 Unknown History Ipratropium/Albuterol Sulfate 1 ampul IH Q6HR PRN 04/16/17 04/16/17 Unknown History [DUONEB *Not for PRN Use*] Lisinopril [Zestril TAB] 10 mg PO QDAY 04/16/17 04/16/17 Unknown History Multivitamin Tab [Multiple Vitamin 1 each PO QDAY 04/16/17 04/16/17 Unknown History TAB (Theragran)] Sennosides [Senna] 8.6 mg PO QHS 04/16/17 04/16/17 Unknown History Sevelamer Carbonate [Renvela] 800 mg PO TIDWM 04/16/17 04/16/17 Unknown History Sulfamethoxazole/Trimethoprim 1 each PO 3XW 04/16/17 04/16/17 Unknown History [Bactrim 400-80 mg] Warfarin [Coumadin] 5 mg PO QDAY 04/16/17 04/16/17 Unknown History amLODIPine [Norvasc] 10 mg PO DAILY 04/16/17 04/16/17 Unknown History hydrALAZINE [Apresoline TAB] 100 mg PO Q8HR 04/16/17 04/16/17 Unknown History traMADol [Ultram 50 MG tab] 50 mg PO Q6HR PRN 04/16/17 04/16/17 Unknown History Aspirin [Aspirin TAB] 325 mg PO QDAY tablet 04/18/17 Unknown Rx Pantoprazole [Protonix] 40 mg PO QDAY #30 tablet 04/18/17 Unknown Rx oxyCODONE /ACETAMINOPHEN [Percocet 1 tab PO Q4HR #15 tab 04/18/17 Unknown Rx 5/325] Active Meds: Active Medications Acetaminophen (Tylenol) 650 mg PO Q4H PRN PRN Reason: Pain MILD(1-3)/Fever >100.5/JEFFERY Last Admin: 04/16/17 23:12 Dose: 650 mg Albuterol (Proventil) 2.5 mg IH Q4HRT PRN PRN Reason: Shortness Of Breath Amiodarone HCl (Cordarone) 200 mg PO QDAY [facility] Last Admin: 04/17/17 13:03 Dose: Not Given Amlodipine Besylate (Norvasc) 10 mg PO DAILY [facility] Last Admin: 04/17/17 13:05 Dose: Not Given Aspirin (Aspirin) 325 mg PO QDAY [facility] Last Admin: 04/17/17 13:03 Dose: Not Given Atorvastatin Calcium (Lipitor) 40 mg PO QHS [facility] Last Admin: 04/17/17 21:44 Dose: 40 mg Benzonatate (Tessalon Perles) 100 mg PO Q8HR PRN PRN Reason: Cough Bisacodyl (Dulcolax) 10 mg [place] QDAY PRN PRN Reason: Constipation unrelieved by MOM Carvedilol (Coreg) 25 mg PO BID [facility] Last Admin: 04/17/17 21:45 Dose: 25 mg Cinacalcet (Sensipar) 60 mg PO QDAY [facility] Last Admin: 04/17/17 13:05 Dose: Not Given Epoetin Moiz (Procrit) 10,000 unit IV KO PRN PRN Reason: hemodialysis Last Admin: 04/17/17 20:30 Dose: 10,000 unit Folic Acid (Folvite) 1 mg PO QDAY [facility] Last Admin: 04/17/17 13:04 Dose: Not Given Hydroxyzine HCl (Atarax) 25 mg PO DAILY PRN PRN Reason: Itching Sodium Chloride (Nacl 0.9%) 100 mls @ 999 mls/hr IV KO PRN PRN Reason: Hypotension Isosorbide Mononitrate (Imdur) 30 mg PO DAILY [facility] Last Admin: 04/17/17 13:04 Dose: Not Given Lisinopril (Zestril) 10 mg PO QDAY [facility] Last Admin: 04/17/17 13:06 Dose: Not Given Multivitamins (Theragran Tab) 1 each PO QDAY [facility] Last Admin: 04/17/17 13:05 Dose: Not Given Nitroglycerin (Nitro-Bid 2%) 0.5 inch TP QIDNTG [facility] PRN Reason: Protocol Last Admin: 04/18/17 05:22 Dose: 0.5 inch Ondansetron HCl (Zofran) 4 mg IV Q6H PRN PRN Reason: nausea or vomiting Pantoprazole Sodium (Protonix) 40 mg PO DAILY [facility] Last Admin: 04/17/17 13:05 Dose: Not Given Senna (Senokot) 8.6 mg PO QHS [facility] Last Admin: 04/17/17 21:44 Dose: 8.6 mg Sevelamer Carbonate (Renvela) 800 mg PO TIDWM [facility] Last Admin: 04/17/17 17:08 Dose: Not Given Sodium Chloride (Sodium Chloride Flush Syringe 10 Ml) 10 ml IV PRN PRN PRN Reason: LINE FLUSH Tramadol HCl (Ultram) 50 mg PO Q6HR PRN PRN Reason: Pain Last Admin: 04/17/17 01:14 Dose: 50 mg Trimethoprim/Sulfamethoxazole (Bactrim Ds) 0.5 each PO MoWeFr [facility] Last Admin: 04/17/17 13:03 Dose: Not Given Warfarin Sodium (Coumadin Pharmacy To Dose) 1 each PO PKCONSULT [facility] PRN Reason: Protocol Review of Systems Constitutional: no fever, no chills, no sweats Cardiovascular: chest pain, no shortness of breath Respiratory: no cough, no hemoptysis Gastrointestinal: no abdominal pain, no nausea, no vomiting, no diarrhea, no constipation Integumentary: no rash Neurological: no weakness Exam - Vital Signs Vital signs: Vital Signs BP Pulse Ox 119/90 85 04/16/17 18:24 04/16/17 18:24 - General Appearance General appearance: well-developed, well-nourished, other (seen on dialysis) EENT: ATNC Respiratory: Clear to Ascultation Heart: regular, S1S2 Gastrointestinal: Present: normal. Absent: tenderness, distended Integumentary: no rash Neurologic: alert and oriented x3 Musculoskeletal: Present: other (no edema) Psychiatric: cooperative Results - Lab Results 04/17/17 04:48 04/17/17 04:48 Most recent lab results Calcium 7.5 mg/dL (8.4-10.2) L 04/17/17 04:48 Assessment and Plan Impression: * End stage renal disease * Chest pain * HIV * Hypertension * Anemia secondary to ESRD Plan * HD today. Continue MWF schedule * UF as tolerated * Cardiac work up per primary team * Epogen for goal Hb 10-12 * Renal diet
--- NOTE | 2017-04-18 10:50 | Progress Note ---
Assessment and Plan Atypical, poorly characterized chest pain Normal MPI Normal LVEF by echo (severe LVH) Moderate calcific mitral stenosis with mild to moderate mitral regurgitation Abnormal ECG showing prolonged QT interval Pancytopenia ESRD on HD x 11 years Non-specific troponin in the setting of ESRD HIV Hx of paroxysmal Afib on coumadin and amiodarone as an outpatient. Currently in sinus rhythm. INR 3.7 on presentation Recommendations: Continue current management. Avoid QT prolonging medications. Conservative cardiac management. Follow-up with primary provider as outpatient. Subjective Date of service: 04/18/17 Interval history: Patient denies chest pain and shortness of breath. For planned discharge home today. Objective Vital Signs Temp Pulse Resp BP Pulse Ox 04/18/17 09:51 97 04/18/17 08:00 98.5 F 78 18 115/56 100 04/18/17 05:59 98.9 F 81 20 123/50 98 04/18/17 03:00 80 04/18/17 01:01 98.7 F 83 20 93/49 99 04/17/17 21:00 97.0 F L 84 18 160/70 04/17/17 20:45 78 138/52 04/17/17 20:36 98 04/17/17 20:30 93 H 137/34 04/17/17 20:15 90 108/41 04/17/17 20:00 87 120/44 04/17/17 19:45 83 114/52 04/17/17 19:30 80 135/52 04/17/17 19:15 79 130/42 04/17/17 19:00 78 138/52 04/17/17 18:45 78 132/62 04/17/17 18:30 76 139/56 04/17/17 18:15 78 142/57 04/17/17 18:00 76 151/54 04/17/17 17:50 96.6 F L 76 18 162/69 04/17/17 17:45 77 163/61 04/17/17 16:50 97.5 F L 78 18 143/67 99 04/17/17 13:45 97.4 F L 72 18 174/72 97 04/17/17 11:40 84 183/62 04/17/17 11:39 84 194/62 04/17/17 11:38 83 178/60 08/09/17 11:37 79 191/64 08/09/17 11:36 79 176/66 04/17/17 10:55 64 174/64 - Physical Examination General: No Apparent Distress HEENT: Positive: PERRL Neck: Positive: neck supple Cardiac: Positive: Reg Rate and Rhythm Lungs: Positive: Decreased Breath Sounds
--- NOTE | 2017-04-18 11:43 | Progress Note ---
Assessment and Plan Impression: * End stage renal disease * Chest pain * HIV * Hypertension * Anemia secondary to ESRD Plan * Continue MWF schedule * UF as tolerated * Cardiac work up per primary team * Epogen for goal Hb 10-12 * Renal diet Subjective Date of service: 04/18/17 Interval history: No acute events overnight - reports chest discomfort; denies SOB, cough, pleuritic pain. Objective - Vital Signs Vital signs: Vital Signs - 12hr 04/18/17 04/18/17 04/18/17 01:01 03:00 05:59 Temperature 98.7 F 98.9 F Pulse Rate 83 80 81 Respiratory 20 20 Rate Blood Pressure 93/49 123/50 O2 Sat by Pulse 99 98 Oximetry 04/18/17 04/18/17 08:00 09:51 Temperature 98.5 F Pulse Rate 78 Respiratory 18 Rate Blood Pressure 115/56 O2 Sat by Pulse 100 97 Oximetry - General Appearance General appearance: well-developed, well-nourished EENT: ATNC Respiratory: Present: Clear to Ascultation Cardiology: regular, S1S2, other (no rub) Gastrointestinal: normal, no tenderness, no distended Integumentary: no rash Musculoskeletal: other (no edema) Psychiatric: cooperative - Lab 04/17/17 04:48 04/17/17 04:48 Most recent lab results Calcium 7.5 mg/dL (8.4-10.2) L 04/17/17 04:48
[2017-04-18 13:40] VITALS: BP 113/55
== END 2017-04-18 14:50 | disposition home or self-care (01) | DRG 391 ==
LOC: ED 18:32 → 4A 22:12
PROVIDERS: ADMIT Internal Medicine; ATTEND Hospitalist
PROC: 5A1D00Z (ICD-10-PCS; principal; 2017-04-17)
DX: K21.9 Gastro-esophageal reflux disease without esophagitis (principal); N18.6 End stage renal disease; B20 Human immunodeficiency virus [HIV] disease; E11.22 Type 2 diabetes mellitus with diabetic chronic kidney disease; I13.2 Hypertensive heart and chronic kidney disease with heart failure and with stage 5 chronic kidney disease, or end stage renal disease; I50.9 Heart failure, unspecified; D63.1 Anemia in chronic kidney disease; I05.2 Rheumatic mitral stenosis with insufficiency; I48.0 Paroxysmal atrial fibrillation; I45.81 Long QT syndrome; Z88.5 Allergy status to narcotic agent; Z79.82 Long term (current) use of aspirin; Z79.899 Other long term (current) drug therapy
CPT/HCPCS: 36415; 71010; 78452; 80048; 80061; 84484; 85007; 85025; 85610; 85730; 93005; 93010; 93017; 93306; A9270-GY; A9502; J0885; J2785; J7030

== ENCOUNTER 2017-05-16 22:53 | Inpatient (IN) | payer MEDICAID ==
[2017-05-16 23:52] LABS: Hematocrit 25.5 % (35.5-45.6); Hemoglobin 8.1 gm/dl (11.8-15.2); Mean Corpuscular HGB Conc 32 % (32-34); Mean Corpuscular Hemoglobin 31 pg (28-32); Mean Corpuscular Volume 97 fl (84-94); Platelet Count 203 K/mm3 (140-440); Red Blood Count 2.63 M/mm3 (3.65-5.03); Red Cell Distribution Width 19.7 % (13.2-15.2)
--- NOTE | 2017-05-16 23:52 | Emergency Department Report ---
ED General Adult HPI - General Chief complaint: Medical Clearance Stated complaint: PERM CATH BLEEDING Time Seen by Provider: 05/16/17 23:13 Source: patient Mode of arrival: Stretcher Limitations: No Limitations - History of Present Illness Initial comments: 61-year-old male with a past history of HIV, hypertension, CHF, end-stage disease on dialysis Saturday, Saturday, and Saturday, alcohol or liver disease, and paroxysmal A. fib presents with complaints of bleeding from his permacath site of his chest wall. Patient is a poor historian but states bleeding started today. He is unsure if he is on a blood thinner however per medical record review patient was on Coumadin and her recent admission early April. Patient denies any pain. Complains of feeling a little dizzy - Related Data Home Medications Medication Instructions Recorded Confirmed Last Taken Amiodarone [Cordarone 200 MG TAB] 200 mg PO QDAY 04/16/17 05/17/17 Unknown Aspirin [Aspirin BABY CHEW TAB] 81 mg PO QDAY 04/16/17 05/17/17 Unknown AtorvaSTATin [Lipitor] 40 mg PO QHS 04/16/17 05/17/17 Unknown Carvedilol [Coreg] 25 mg PO BID 04/16/17 05/17/17 Unknown Cinacalcet HCl [Sensipar] 60 mg PO DAILY 04/16/17 05/17/17 Unknown Hydroxyzine HCl 25 mg PO DAILY PRN 04/16/17 05/17/17 Unknown ISOSORBIDE MONOnitrate [Imdur ER] 30 mg PO DAILY 04/16/17 05/17/17 Unknown Ipratropium/Albuterol Sulfate 1 ampul IH Q6HR PRN 04/16/17 05/17/17 Unknown [DUONEB *Not for PRN Use*] Multivitamin Tab [Multiple Vitamin 1 each PO QDAY 04/16/17 05/17/17 Unknown TAB (Theragran)] Sennosides [Senna] 8.6 mg PO QHS 04/16/17 05/17/17 Unknown Warfarin [Coumadin] 4 mg PO QDAY 04/16/17 05/17/17 Unknown amLODIPine [Norvasc] 10 mg PO DAILY 04/16/17 05/17/17 Unknown hydrALAZINE [Apresoline TAB] 100 mg PO Q8HR 04/16/17 05/17/17 Unknown traMADol [Ultram 50 MG tab] 50 mg PO Q6HR PRN 04/16/17 05/17/17 Unknown Atovaquone [Mepron] 1,500 mg PO DAILY 05/17/17 05/17/17 Unknown Dolutegravir Sodium [Tivicay] 50 mg PO DAILY 05/17/17 05/17/17 Unknown Lisinopril [Zestril TAB] 10 mg PO QDAY 05/17/17 05/17/17 Unknown Tenofovir [Viread] 300 mg PO QWEEK 05/17/17 05/17/17 Unknown lamiVUDine [Epivir NICU] 50 mg PO DAILY 05/17/17 05/17/17 Unknown Previous Rx's Medication Instructions Recorded Last Taken Type Pantoprazole [Protonix] 40 mg PO QDAY #30 tablet 04/18/17 Unknown Rx Allergies Allergy/AdvReac Type Severity Reaction Status Date / Time codeine Allergy Unknown Verified 04/16/17 18:44 ED Review of Systems ROS: Stated complaint: PERM CATH BLEEDING Other details as noted in HPI ED Past Medical Hx - Past Medical History Previous Medical History?: Yes Hx Hypertension: Yes Hx Congestive Heart Failure: Yes Hx Diabetes: No Hx GERD: Yes Hx Renal Disease: Yes (dialysis m,w,f) Hx Asthma: No Hx COPD: No Hx HIV: Yes Additional medical history: iron deficiency anemia. hyperlipidemia. end stage renal disease. alcoholic liver disease. Paroxysmal A. fib - Surgical History Past Surgical History?: Yes Additional Surgical History: fistula right arm - Social History Smoking Status: Never Smoker Substance Use Type: None - Medications Home Medications: Home Medications Medication Instructions Recorded Confirmed Last Taken Type Amiodarone [Cordarone 200 MG TAB] 200 mg PO QDAY 04/16/17 05/17/17 Unknown History Aspirin [Aspirin BABY CHEW TAB] 81 mg PO QDAY 04/16/17 05/17/17 Unknown History AtorvaSTATin [Lipitor] 40 mg PO QHS 04/16/17 05/17/17 Unknown History Carvedilol [Coreg] 25 mg PO BID 04/16/17 05/17/17 Unknown History Cinacalcet HCl [Sensipar] 60 mg PO DAILY 04/16/17 05/17/17 Unknown History Hydroxyzine HCl 25 mg PO DAILY PRN 04/16/17 05/17/17 Unknown History ISOSORBIDE MONOnitrate [Imdur ER] 30 mg PO DAILY 04/16/17 05/17/17 Unknown History Ipratropium/Albuterol Sulfate 1 ampul IH Q6HR PRN 04/16/17 05/17/17 Unknown History [DUONEB *Not for PRN Use*] Multivitamin Tab [Multiple Vitamin 1 each PO QDAY 04/16/17 05/17/17 Unknown History TAB (Theragran)] Sennosides [Senna] 8.6 mg PO QHS 04/16/17 05/17/17 Unknown History Warfarin [Coumadin] 4 mg PO QDAY 04/16/17 05/17/17 Unknown History amLODIPine [Norvasc] 10 mg PO DAILY 04/16/17 05/17/17 Unknown History hydrALAZINE [Apresoline TAB] 100 mg PO Q8HR 04/16/17 05/17/17 Unknown History traMADol [Ultram 50 MG tab] 50 mg PO Q6HR PRN 04/16/17 05/17/17 Unknown History Pantoprazole [Protonix] 40 mg PO QDAY #30 tablet 04/18/17 05/17/17 Unknown Rx Atovaquone [Mepron] 1,500 mg PO DAILY 05/17/17 05/17/17 Unknown History Dolutegravir Sodium [Tivicay] 50 mg PO DAILY 05/17/17 05/17/17 Unknown History Lisinopril [Zestril TAB] 10 mg PO QDAY 05/17/17 05/17/17 Unknown History Tenofovir [Viread] 300 mg PO QWEEK 05/17/17 05/17/17 Unknown History lamiVUDine [Epivir NICU] 50 mg PO DAILY 05/17/17 05/17/17 Unknown History ED Physical Exam - General Limitations: No Limitations - Other Other exam information: General: No limitations, patient is alert in no acute distress Head exam: Atraumatic, normocephalic Eyes exam: Normal appearance ENT: Moist mucous membrane, normal oropharynx Neck exam: Normal inspection, full range of motion, no meningismus nontender Respiratory exam: Clear to auscultation bilateral, no wheezes, rales, crackles Cardiovascular: Normal rate and rhythm, normal heart sounds Abdomen: Soft, nondistended, and nontender, with normal bowel sounds, no rebound, or guarding Extremity: Left arm with previous vascular graft access site nonfunctional. 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 Positive thrill. Right chest wall permacath with mild blood at the site Back: Normal Inspection, full range of motion, no tenderness Neurologic: Alert, oriented x3, cranial nerves intact, no motor or sensory deficit Psychiatric: normal affect, normal mood Skin: Warm, dry, intact ED Course Vital Signs 05/16/17 05/17/17 05/17/17 23:04 01:08 02:00 Temperature 98.3 F Pulse Rate 67 76 Respiratory 18 18 Rate Blood Pressure 155/87 144/85 Blood Pressure 144/82 [Left] O2 Sat by Pulse 98 99 99 Oximetry 05/17/17 05/17/17 03:00 04:07 Temperature 98.3 F Pulse Rate 74 Respiratory 9 L Rate Blood Pressure 140/84 Blood Pressure [Left] O2 Sat by Pulse 100 Oximetry - Reevaluation(s) Reevaluation #1: 05/17/17 03:11 Current dressing removed. Heliostat placed in site with pressure bandage. Reevaluation #2: 05/17/17 04:55 Patient continues to have bleeding despite pressure dressing, DDVAP, and heliostat. FFP ordered (as per hospitalist instruction) - Consultations Consultation #1: 05/17/17 01:[address] 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 Sterile technique used. 1 0 suture placed at skin opening site. Initially bleeding has stopped. However, bleeding increased after dressing placed ED Medical Decision Making - Lab Data Result diagrams: 05/16/17 23:39 05/16/17 23:39 - Differential Diagnosis catheter dysfunction, coagulopathy, anemia Critical Care Time: No Critical care attestation.: If time is entered above; I have spent that time in minutes in the direct care of this critically ill patient, excluding procedure time. ED Disposition Clinical Impression: HIV (human immunodeficiency virus infection), Bleeding on Coumadin, ESRD (end stage renal disease), Hemorrhage from dialysis catheter Disposition: OP ADMIT IP TO THIS HOSP Is pt being admited?: Yes Condition: Stable Time of Disposition: :06 (hospitalist)
[2017-05-17 00:05] LABS: INR 4.67 (0.87-1.13)
[2017-05-17 00:11] LABS: BUN/Creatinine Ratio 2.69; Calcium 9.4 mg/dL (8.4-10.2); Chloride 99.8 mmol/L (98-107); Potassium 4.2 mmol/L (3.6-5.0)
[2017-05-17 00:16] LABS: Partial Thromboplastin Time 63.2 Sec. (24.2-36.6)
[2017-05-17] MEDS ORDERED: XYLOCAINE 1%/ EPI 1:100,000 INFILTRATI NR (02:00)
[2017-05-17] MEDS ORDERED: DDAVP IV ONE (02:58)
[2017-05-17] MEDS ORDERED: NACL 0.9% IV ONE (02:58)
[2017-05-17] MEDS ORDERED: NACL 0.9% 500 ML 500 ML IV ONE ×2 (04:54→13:17)
[2017-05-17] MEDS ORDERED: ALUM-MAG HYDROX-SIMETH 200-200-20MG/5ML PO PRN (05:42)
[2017-05-17] MEDS ORDERED: AMBIEN PO PRN (05:42)
[2017-05-17] MEDS ORDERED: ZOFRAN IV PRN (05:42)
[2017-05-17] MEDS ORDERED: TYLENOL PO PRN (05:42)
[2017-05-17] MEDS ORDERED: PROVENTIL IH PRN (05:42)
[2017-05-17] MEDS ORDERED: NARCAN 0.4 MG/1 ML IV PRN (05:42)
[2017-05-17] MEDS ORDERED: PERCOCET 5/325 PO PRN (05:42)
[2017-05-17] MEDS ORDERED: MILK OF MAGNESIA PO PRN (05:42)
[2017-05-17] MEDS ORDERED: DULCOLAX PR PRN (05:42)
[2017-05-17] MEDS ORDERED: MORPHINE IV PRN (05:42)
[2017-05-17] MEDS ORDERED: ULTRAM PO PRN (05:45)
[2017-05-17] MEDS ORDERED: HYDROXYZINE HCL 25 MG PO PRN (05:45)
[2017-05-17] MEDS ORDERED: DUONEB *Not for PRN Use IH (05:45)
--- NOTE | 2017-05-17 05:53 | History and Physical Report ---
History of Present Illness Date of examination: 05/17/17 Chief complaint: permacath bleeding History of present illness: 61-year-old male with a past history of HIV, hypertension, CHF, end-stage disease on dialysis Saturday, Saturday, and Saturday, alcohol or liver disease, and paroxysmal A. fib presents with complaints of bleeding from his permacath site of his chest wall. Patient is a poor historian but states bleeding started today. He is unsure if he is on a blood thinner however per medical record review patient was on Coumadin and her recent admission early April. Patient denies any pain. Complains of feeling a little dizzy Past History Past Medical History: ESRD, HIV/AIDS, hypertension, hyperlipidemia Medications and Allergies Allergies Allergy/AdvReac Type Severity Reaction Status Date / Time codeine Allergy Unknown Verified 04/16/17 18:44 Home Medications Medication Instructions Recorded Confirmed Last Taken Type Amiodarone [Cordarone 200 MG TAB] 200 mg PO QDAY 04/16/17 05/17/17 Unknown History Aspirin [Aspirin BABY CHEW TAB] 81 mg PO QDAY 04/16/17 05/17/17 Unknown History AtorvaSTATin [Lipitor] 40 mg PO QHS 04/16/17 05/17/17 Unknown History Carvedilol [Coreg] 25 mg PO BID 04/16/17 05/17/17 Unknown History Cinacalcet HCl [Sensipar] 60 mg PO DAILY 04/16/17 05/17/17 Unknown History Hydroxyzine HCl 25 mg PO DAILY PRN 04/16/17 05/17/17 Unknown History ISOSORBIDE MONOnitrate [Imdur ER] 30 mg PO DAILY 04/16/17 05/17/17 Unknown History Ipratropium/Albuterol Sulfate 1 ampul IH Q6HR PRN 04/16/17 05/17/17 Unknown History [DUONEB *Not for PRN Use*] Multivitamin Tab [Multiple Vitamin 1 each PO QDAY 04/16/17 05/17/17 Unknown History TAB (Theragran)] Sennosides [Senna] 8.6 mg PO QHS 04/16/17 05/17/17 Unknown History Warfarin [Coumadin] 4 mg PO QDAY 04/16/17 05/17/17 Unknown History amLODIPine [Norvasc] 10 mg PO DAILY 04/16/17 05/17/17 Unknown History hydrALAZINE [Apresoline TAB] 100 mg PO Q8HR 04/16/17 05/17/17 Unknown History traMADol [Ultram 50 MG tab] 50 mg PO Q6HR PRN 04/16/17 05/17/17 Unknown History Pantoprazole [Protonix] 40 mg PO QDAY #30 tablet 04/18/17 05/17/17 Unknown Rx Atovaquone [Mepron] 1,500 mg PO DAILY 05/17/17 05/17/17 Unknown History Dolutegravir Sodium [Tivicay] 50 mg PO DAILY 05/17/17 05/17/17 Unknown History Lisinopril [Zestril TAB] 10 mg PO QDAY 05/17/17 05/17/17 Unknown History Tenofovir [Viread] 300 mg PO QWEEK 05/17/17 05/17/17 Unknown History lamiVUDine [Epivir NICU] 50 mg PO DAILY 05/17/17 05/17/17 Unknown History Active Meds: Active Medications Acetaminophen (Tylenol) 650 mg PO Q4H PRN PRN Reason: Pain MILD(1-3)/Fever >100.5/JEFFERY Al Hydrox/Mg Hydrox/Simethicone (Alum-Mag Hydrox-Simeth [id number]/5ml) 30 ml PO Q4H PRN PRN Reason: Indigestion Albuterol (Proventil) 2.5 mg IH Q4HRT PRN PRN Reason: Shortness Of Breath Albuterol/Ipratropium (Duoneb *Not For Prn Use*) 1 ampul IH Q6HR PRN PRN Reason: shortness of breatrh Amiodarone HCl (Cordarone) 200 mg PO QDAY [facility] Amlodipine Besylate (Norvasc) 10 mg PO DAILY [facility] Aspirin (Baby Aspirin) 81 mg PO QDAY [facility] Atorvastatin Calcium (Lipitor) 40 mg PO QHS [facility] Atovaquone (Mepron) 1,500 mg PO DAILY [facility] Bisacodyl (Dulcolax) 10 mg AR QDAY PRN PRN Reason: Constipation unrelieved by MOM Carvedilol (Coreg) 25 mg PO BID [facility] Famotidine (Pepcid) 10 mg PO BID [facility] Hydralazine HCl (Apresoline) 100 mg PO Q8HR [facility] Sodium Chloride (Nacl 0.45% 1000 Ml) 1,000 mls @ 75 mls/hr IV DIRECT [facility] Isosorbide Mononitrate (Imdur) 30 mg PO DAILY [facility] Lamivudine (Epivir) 50 mg PO DAILY [facility] Lisinopril (Zestril) 10 mg PO QDAY [facility] Magnesium Hydroxide (Milk Of Magnesia) 30 ml PO Q4H PRN PRN Reason: Constipation Miscellaneous Medication (Cinacalcet Hcl [Sensipar]) 60 mg PO DAILY [facility] Miscellaneous Medication (Dolutegravir Sodium [Tivicay]) 50 mg PO DAILY [facility] Miscellaneous Medication (Hydroxyzine Hcl [Hydroxyzine Hcl]) 25 mg PO DAILY PRN PRN Reason: Itching Morphine Sulfate (Morphine) 2 mg IV Q4H PRN PRN Reason: Pain, Moderate (4-6) Multivitamins (Theragran Tab) 1 each PO QDAY [facility] Naloxone HCl (Narcan 0.4 Mg/1 Ml) 0.1 mg IV Q2MIN PRN PRN Reason: Res Rate </= 8 or 02 SAT < 92% Ondansetron HCl (Zofran) 4 mg IV Q8H PRN PRN Reason: N/V unrelieved by Reglan Oxycodone/Acetaminophen (Percocet 5/325) 1 tab PO Q6H PRN PRN Reason: Pain, Moderate (4-6) Pantoprazole Sodium (Protonix) 40 mg PO QDAY [facility] Senna (Senokot) 8.6 mg PO QHS [facility] Tenofovir Disoproxil Fumarate (Viread) 300 mg PO QWEEK [facility] Tramadol HCl (Ultram) 50 mg PO Q6HR PRN PRN Reason: Pain Zolpidem Tartrate (Ambien) 5 mg PO QHS PRN PRN Reason: Insomnia Review of Systems All systems: negative (all 14 systems reviewed and found to be negative except as mentioned in HPI) Exam - Physical Exam Narrative exam: General: No limitations, patient is alert in no acute distress Head exam: Atraumatic, normocephalic Eyes exam: Normal appearance ENT: Moist mucous membrane, normal oropharynx Neck exam: Normal inspection, full range of motion, no meningismus nontender Respiratory exam: Clear to auscultation bilateral, no wheezes, rales, crackles Cardiovascular: Normal rate and rhythm, normal heart sounds Abdomen: Soft, nondistended, and nontender, with normal bowel sounds, no rebound, or guarding Extremity: Left arm with previous vascular graft access site nonfunctional. 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 Positive thrill. Right chest wall permacath with mild blood at the site Back: Normal Inspection, full range of motion, no tenderness Neurologic: Alert, oriented x3, cranial nerves intact, no motor or sensory deficit Psychiatric: normal affect, normal mood Skin: Warm, dry, intact - Constitutional Vitals: Temp Pulse Resp BP Pulse Ox 98.3 F 74 9 L 140/84 100 05/17/17 03:00 05/17/17 04:07 05/17/17 04:07 05/17/17 04:07 05/17/17 04:07 Results - Labs CBC & Chem 7: 05/16/17 23:39 05/16/17 23:39 Labs: Laboratory Last Values WBC 5.0 K/mm3 (4.5-11.0) 05/16/17 23:39 RBC 2.63 M/mm3 (3.65-5.03) L 05/16/17 23:39 Hgb 8.1 gm/dl (11.8-15.2) L 05/16/17 23:39 Hct 25.5 % (35.5-45.6) L 05/16/17 23:39 MCV 97 fl (84-94) H 05/16/17 23:39 MCH 31 pg (28-32) 05/16/17 23:39 MCHC 32 % (32-34) 05/16/17 23:39 RDW 19.7 % (13.2-15.2) H 05/16/17 23:39 Plt Count 203 K/mm3 (140-440) 05/16/17 23:39 PT 44.5 Sec. (12.2-14.9) H 05/16/17 23:39 INR 4.67 (0.87-1.13) H 05/16/17 23:39 APTT 63.2 Sec. (24.2-36.6) H* 05/16/17 23:39 Sodium 138 mmol/L (137-145) 05/16/17 23:39 Potassium 4.2 mmol/L (3.6-5.0) 05/16/17 23:39 Chloride 99.8 mmol/L (98-107) 05/16/17 23:39 Carbon Dioxide 25 mmol/L (22-30) 05/16/17 23:39 Anion Gap 17 mmol/L 05/16/17 23:39 BUN 17 mg/dL (9-20) 05/16/17 23:39 Creatinine 6.3 mg/dL (0.8-1.5) H 05/16/17 23:39 Estimated GFR 11 ml/min 05/16/17 23:39 BUN/Creatinine Ratio 2.69 % 05/16/17 23:39 Glucose 83 mg/dL (75-100) 05/16/17 23:39 Calcium 9.4 mg/dL (8.4-10.2) 05/16/17 23:39 Blood Type A POSITIVE 05/17/17 05:00
[2017-05-17] MEDS ORDERED: NACL 0.45% 1000 ML 1,000 ML IV SCH (06:00)
[2017-05-17] MEDS ORDERED: ATARAX PO PRN (06:02)
[2017-05-17 06:19] LABS: Hematocrit 23.4 % (35.5-45.6); Hemoglobin 7.7 gm/dl (11.8-15.2); Mean Corpuscular HGB Conc 33 % (32-34); Mean Corpuscular Hemoglobin 31 pg (28-32); Mean Corpuscular Volume 95 fl (84-94); Platelet Count 194 K/mm3 (140-440); Red Blood Count 2.47 M/mm3 (3.65-5.03); Red Cell Distribution Width 19.1 % (13.2-15.2); White Blood Count 4.4 K/mm3 (4.5-11.0)
[2017-05-17] MEDS ORDERED: ULTRAM ONE (06:23)
[2017-05-17] MEDS: APRESOLINE PO SCH ×3 (06:38→22:46)
[2017-05-17 06:53] LABS: INR 5.18 (0.87-1.13)
[2017-05-17] MEDS ORDERED: VITAMIN K (ADULT ONLY) SUB-Q ONE (06:55)
--- NOTE | 2017-05-17 07:09 | Admit Criteria Form ---
Admission Criteria Documentation: HEMATOLOGY GRG Clinical Indications for Admission to Inpatient Care ( [place]/check or initial the applicable condition/criteria) Hospital Admission is needed for appropriate care of the patient because 1 or more of the following: [ ]I. Severe anemia indicated by 1 or more of the following (1)(2)(3) [ ]a) Altered mental status [ ]b) Chest pain [ ]c) Exertional dyspnea [ ]d) Syncope [ ]e) Other findings suggesting inadequate perfusion [ ]f) Treatment with transfusion or volume replacement is ineffective at resolving 1 or more of the following [A]: [ ]i) Tachycardia [ ]ii) Orthostatic vital sign changes as indicated by 1 or more of the following (4) [ ]1) Fall in SBP of 20 mm Hg or more 1 to 3 minutes after patient sits or stands from recumbent position [ ]2) Fall in DBP of 10 mm Hg or more 1 to 3 minutes after patient sits or stands from recumbent position [ ]II. High-risk febrile neutropenia [B] as indicated by 1 or more of the following(5)(6)(7)(8)(9) [ ]a) Profound neutropenia (C) anticipated to extend for more than 7 days [ ]b) Hemodynamic instability [ ]c) Hypoxemia [ ]d) Tachypnea [ ]e) Altered mental status [ ]f) Altered mental status [ ]g) New onset vomiting or diarrhea [ ]h) Oral or gastrointestinal mucositis that interferes with swallowing or causes severe diarrhea [ ]i) Focal infection (eg cellulitis, pneumonia, central line or catheter infection, perirectal abscess) [ ]j) Renal insufficiency (e.g., GFR of less than 30 mL/min/1.73m2 ( 0.5 mL/sec/1.73m2) [ ]k) Severe liver dysfunction (transaminase levels greater than 5 times normal) [ ]l) Platelet count less than 50,000/mm3 (50 x109/L)(6) [ ]m) Leukemia or lymphoma induction therapy [ ]n) Leukemia not in complete remission or with evidence of disease progression [ ]o) Bone marrow transplant patient [ ]p) Alemtuzumab being used for therapy [ ]q) [employer] Supportive Care in Cancer (MASCC) Risk Index score of < 21 [o) D](7)(10)(11) [ ]III. High-risk low platelet count as indicated by 1 or more of the following( 12)(13)(14) [ ]a) Severe or life-threatening bleeding (eg, intracranial, major gastrointestinal, or extensive mucosal bleeding), with any reduced platelet count [ ]b) Platelet count less than 20,000/mm3 (20 x109/L) with any active bleeding [ ]c) Platelet count less than 10,000/mm3 (10 x109/L) with minor purpura or petechiae [ ]d) Platelet count less than 5000/mm3 (5 x109/L) [ ]e) Low platelet count with hemolytic anemia [ ]IV. Active hemolysis with high-risk findings, including 1 or more of the following(15)(16)(17)(18)(19) [ ]a) Hematocrit less than 25% (0.25) [ ]b) Rapidly progressing anemia c) Thrombocytopenia(12)(13) [ ]d) Evidence of thrombosis or new renal insufficiency (eg hemolytic uremic syndrome) (20)(21)(22) [ ]V. Henonch-Schonlein purpura(23) [ ]Vl. Bleeding disorder with high-risk features (eg, hemophilia, coagulopathy) as indicated by 1 or more of the following (24)(25)(26)(27)(28) [ ]a) Central nervous system bleeding [ ]b) Retroperitoneal bleeding [ ]c) Retropharyngeal bleeding [ ]d) Gastrointestinal bleeding (29) [ ]e) Alveolar hemorrhage (30) [ ]f) Purpura [ ]f) Disseminated intravascular coagulation(31)(32) [ ]g) Major trauma(33)(34)(35) [ ]h) Deep laceration [ ]i) Head trauma(36) [ ]j) Traumatic or spontaneous expanding internal hematoma (eg retroperitonal occular) [ ]k) Failed outpatient management [X ]Jesusita. Severe over-anticoagulation or high-risk situation as indicated by 1 or more of the following(37)(38)(39) [X ]a) Active bleeding(40) [X ]b) International normalized ratio 5 or greater and rapid reversal needed [ ]c) International normalized ratio 9 or greater [ ]VIIl. Congenital immunodeficiency states with severe morbidity as indicated by 1 or more of the following(41)(42)(43)(44) [ ]a) Severe infection [ ]b) Bone marrow transplant needed [ ]lX. Hyperviscosity syndrome with high-risk indicators indicated by 1 or more of the following (19)(45)(46)(47)(48) [ ]a) Polycythemia vera with hematocrit greater than 60% (0.60) [ ]b) Elevated platelet count associated with thrombosis, bleeding, or life-threatening organ dysfunction [ ]c) Severe signs or symptoms from elevated red cell, white cell, or protein levels, including 1 or more of the following: [ ]i) Altered mental status that is severe or psersistent [ ]ii) Dyspnea [ ]iii) Chest x-ray infiltrate [ ]iv) Visual changes [ ]v) Retinal abnormalities [ ]vi) Neuromuscular symptoms [ ]vii) Suspected ischemia or thrombosis [ ]viii) Bleeding [ ]X. Cryoglobulinemia requiring inpatient care due 1 or more of the following:( 49) [ ]a) Severe systemic effects (eg, glomerunephritis, other end organ damage due to vasculitis) [ ]b) Hyperviscosity (eg, acute thrombosis) [ ]c) Need for specified treatment that can only be managed in inpatient setting [ ]Xl. Methemoglobinemia and 1 or more of the following (50)(51): [ ]a) Hypotension [ ]b) Methemoglobinemia [ ]c) Cyanosis [ ]d) Seizure [ ]e) Lactic acidosis [ ]f) other severe symptoms due to tissue hypoxia (52)(53) [ ]Xll. Spleen trauma with blood loss or other need for acute (medical) treatment (34) [ ]Xlll. Transfusion reaction requiring inpatient care (eg, anaphylaxis, hemolysis, transfusion-related lung injury Hemodynamic instability)(54)(55)(56) [ ]XlV.Thrombotic disorder requiring inpatient care (eg, heparin-induced thrombocytopenia, castartrophic antiphospholipid syndrome, thrombotic thrombocytopenia) as indicated by 1 or more of the following (12)(57)(58)(59)(60): [ ]a) Need for inpatient treatment (e.g. IV anticoagulation, IV immunosuppression, plasma exchange) [ ]b) Need for inpatient monitoring (e.g. frequent laboratory testing, response to therapy) [ ]XV. Hematology condition symptom or finding for which emergency and observation care have failed or are not considered appropriate (See General Criteria: Observation Care General Admission Criteria or Pediatric General Admission Criteria guideline as appropriate The original [facility] content created by [facility] has been revised. The portions of the content which have been revised are identified through the use of italic text or in bold, and [facility] has neither reviewed nor approved the modified material. All other unmodified content is copyright [facility]. Please see references footnoted in the original [facility] edition 2017 Admission Criteria Met: Yes
[2017-05-17 08:26] LABS: Basophils % (Manual) 0 % (0.0-1.8); Blastocytes % (Manual) 0 %; Microcytosis 1+
[2017-05-17 08:27] LABS: Diff Status Complete; Elliptocytes Few; Polychromasia 1+; Tear Drop Cells Few
[2017-05-17] MEDS ORDERED: MEPRON PO SCH (10:00)
[2017-05-17] MEDS ORDERED: EPIVIR PO SCH ×2 (10:00→11:00)
[2017-05-17] MEDS ORDERED: ZESTRIL PO SCH (10:00)
[2017-05-17] MEDS ORDERED: NON-FORMULARY (Dolutegravir Sodium [Tivicay] 50 MG) PO SCH (10:00)
[2017-05-17] MEDS ORDERED: NON-FORMULARY (Cinacalcet Hcl [Sensipar] 60 MG) PO SCH (10:00)
[2017-05-17] MEDS ORDERED: THERAGRAN Tab PO SCH (10:00)
[2017-05-17] MEDS ORDERED: PEPCID PO SCH (10:00)
[2017-05-17] MEDS: CORDARONE PO SCH (11:50)
[2017-05-17] MEDS: BABY ASPIRIN PO SCH (11:50)
[2017-05-17] MEDS: COREG PO SCH ×2 (11:50→22:46)
[2017-05-17] MEDS: IMDUR PO SCH (11:51)
[2017-05-17] MEDS: NORVASC PO SCH (11:51)
[2017-05-17] MEDS: SENSIPAR PO SCH (11:52)
[2017-05-17] MEDS: PROTONIX PO SCH (11:52)
[2017-05-17] MEDS ORDERED: XYLOCAINE 1% 20 mL ONE (11:59)
--- NOTE | 2017-05-17 12:35 | Event Note ---
Date: 05/17/17 Patient is 61 old with HIV, ESRD on hemodialysis. He presented with bleeding right permcath. He is on Coumadin and INR supratherapeutic.I have seen and examined him. He is still actively bleeding. Discussed case with Dr. Arriola in person. Repeat H&H and INR stat.
[2017-05-17 12:59] LABS: Hematocrit 20.7 % (35.5-45.6); Hemoglobin 6.8 gm/dl (11.8-15.2)
[2017-05-17 13:04] LABS: Alanine Aminotransferase 13 units/L (7-56); Albumin 3.1 g/dL (3.9-5); Albumin/Globulin Ratio 0.8 %; Alkaline Phosphatase 65 units/L (35-129); Total Protein 7.2 g/dL (6.3-8.2)
[2017-05-17 13:09] LABS: Bilirubin,Direct < 0.2 mg/dL (0-0.2)
--- NOTE | 2017-05-17 13:16 | Consultation ---
History of Present Illness - Reason for Consult Consult date: 05/17/17 end stage renal disease Requesting physician: FERMIN CUTLER - History of Present Illness Mr. Gallo is a 61-year-old -[place] male with past medical history significant for end-stage renal disease on maintenance hemodialysis, HIV disease and hypertension presented to the emergency room with bleeding from his PermCath site. He undergoes hemodialysis at [facility] under the care of Dr. Toscano on Mondays, Wednesdays and Fridays schedule. He did have his regular treatment on Saturday and is scheduled for dialysis again today. Initially the PermCath site was sutured by the ER physician. He continued to bleed. Patient was seen by vascular surgery and had the site sutured again and the bleeding seems to have stopped at this time. Patient denies any shortness of breath. No nausea vomiting or diarrhea Past History Past Medical History: ESRD, HIV/AIDS, hypertension, hyperlipidemia Past Surgical History: Other (history of creation of multiple AV access. History of gallbladder surgery) Social history: no significant social history Family history: no significant family history Medications and Allergies Allergies Allergy/AdvReac Type Severity Reaction Status Date / Time codeine Allergy Unknown Verified 04/16/17 18:44 Home Medications Medication Instructions Recorded Confirmed Last Taken Type Amiodarone [Cordarone 200 MG TAB] 200 mg PO QDAY 04/16/17 05/17/17 Unknown History Aspirin [Aspirin BABY CHEW TAB] 81 mg PO QDAY 04/16/17 05/17/17 Unknown History AtorvaSTATin [Lipitor] 40 mg PO QHS 04/16/17 05/17/17 Unknown History Carvedilol [Coreg] 25 mg PO BID 04/16/17 05/17/17 Unknown History Cinacalcet HCl [Sensipar] 60 mg PO DAILY 04/16/17 05/17/17 Unknown History Hydroxyzine HCl 25 mg PO DAILY PRN 04/16/17 05/17/17 Unknown History ISOSORBIDE MONOnitrate [Imdur ER] 30 mg PO DAILY 04/16/17 05/17/17 Unknown History Ipratropium/Albuterol Sulfate 1 ampul IH Q6HR PRN 04/16/17 05/17/17 Unknown History [DUONEB *Not for PRN Use*] Multivitamin Tab [Multiple Vitamin 1 each PO QDAY 04/16/17 05/17/17 Unknown History TAB (Theragran)] Sennosides [Senna] 8.6 mg PO QHS 04/16/17 05/17/17 Unknown History Warfarin [Coumadin] 4 mg PO QDAY 04/16/17 05/17/17 Unknown History amLODIPine [Norvasc] 10 mg PO DAILY 04/16/17 05/17/17 Unknown History hydrALAZINE [Apresoline TAB] 100 mg PO Q8HR 04/16/17 05/17/17 Unknown History traMADol [Ultram 50 MG tab] 50 mg PO Q6HR PRN 04/16/17 05/17/17 Unknown History Pantoprazole [Protonix] 40 mg PO QDAY #30 tablet 04/18/17 05/17/17 Unknown Rx Atovaquone [Mepron] 1,500 mg PO DAILY 05/17/17 05/17/17 Unknown History Dolutegravir Sodium [Tivicay] 50 mg PO DAILY 05/17/17 05/17/17 Unknown History Lisinopril [Zestril TAB] 10 mg PO QDAY 05/17/17 05/17/17 Unknown History Tenofovir [Viread] 300 mg PO QWEEK 05/17/17 05/17/17 Unknown History lamiVUDine [Epivir NICU] 50 mg PO DAILY 05/17/17 05/17/17 Unknown History Active Meds: Active Medications Acetaminophen (Tylenol) 650 mg PO Q4H PRN PRN Reason: Pain MILD(1-3)/Fever >100.5/JEFFERY Al Hydrox/Mg Hydrox/Simethicone (Alum-Mag Hydrox-Simeth [id number]/5ml) 30 ml PO Q4H PRN PRN Reason: Indigestion Albuterol (Proventil) 2.5 mg IH Q4HRT PRN PRN Reason: Shortness Of Breath Amiodarone HCl (Cordarone) 200 mg PO QDAY [facility] Last Admin: 05/17/17 11:50 Dose: 200 mg Amlodipine Besylate (Norvasc) 10 mg PO DAILY [facility] Last Admin: 05/17/17 11:51 Dose: 10 mg Aspirin (Baby Aspirin) 81 mg PO QDAY [facility] Last Admin: 05/17/17 11:50 Dose: 81 mg Atorvastatin Calcium (Lipitor) 40 mg PO QHS [facility] Atovaquone (Mepron) 1,500 mg PO DAILY [facility] Last Admin: 05/17/17 11:51 Dose: 1,500 mg Bisacodyl (Dulcolax) 10 mg [place] QDAY PRN PRN Reason: Constipation unrelieved by MOM Carvedilol (Coreg) 25 mg PO BID [facility] Last Admin: 05/17/17 11:50 Dose: 25 mg Cinacalcet (Sensipar) 60 mg PO QDAY [facility] Last Admin: 05/17/17 11:52 Dose: 60 mg Hydralazine HCl (Apresoline) 100 mg PO Q8HR [facility] Last Admin: 05/17/17 06:38 Dose: Not Given Hydroxyzine HCl (Atarax) 25 mg PO DAILY PRN PRN Reason: Itching Sodium Chloride (Nacl 0.45% 1000 Ml) 1,000 mls @ 75 mls/hr IV DIRECT [facility] Isosorbide Mononitrate (Imdur) 30 mg PO DAILY [facility] Last Admin: 05/17/17 11:51 Dose: 30 mg Lamivudine (Epivir) 50 mg PO DAILY [facility] Last Admin: 05/17/17 11:53 Dose: 50 mg Lisinopril (Zestril) 10 mg PO QDAY [facility] Last Admin: 05/17/17 11:52 Dose: 10 mg Magnesium Hydroxide (Milk Of Magnesia) 30 ml PO Q4H PRN PRN Reason: Constipation Miscellaneous Medication (Dolutegravir Sodium [Tivicay]) 50 mg PO DAILY [facility] Morphine Sulfate (Morphine) 2 mg IV Q4H PRN PRN Reason: Pain, Moderate (4-6) Multivitamins (Theragran Tab) 1 each PO QDAY [facility] Last Admin: 05/17/17 11:52 Dose: 1 each Naloxone HCl (Narcan 0.4 Mg/1 Ml) 0.1 mg IV Q2MIN PRN PRN Reason: Res Rate </= 8 or 02 SAT < 92% Ondansetron HCl (Zofran) 4 mg IV Q8H PRN PRN Reason: N/V unrelieved by Reglan Oxycodone/Acetaminophen (Percocet 5/325) 1 tab PO Q6H PRN PRN Reason: Pain, Moderate (4-6) Pantoprazole Sodium (Protonix) 40 mg PO QDAY [facility] Last Admin: 05/17/17 11:52 Dose: 40 mg Senna (Senokot) 8.6 mg PO QHS [facility] Tenofovir Disoproxil Fumarate (Viread) 300 mg PO We [facility] Tramadol HCl (Ultram) 50 mg PO Q6HR PRN PRN Reason: Pain Last Admin: 05/17/17 06:22 Dose: 50 mg Zolpidem Tartrate (Ambien) 5 mg PO QHS PRN PRN Reason: Insomnia Review of Systems All systems: negative (negative except as noted above) Exam - Vital Signs Vital signs: Vital Signs Temp Pulse Resp BP Pulse Ox 98.3 F 67 18 155/87 98 05/16/17 23:04 05/16/17 23:04 05/16/17 23:04 05/16/17 23:04 05/16/17 23:04 - General Appearance General appearance: well-developed, well-nourished, appears stated age EENT: PERRL, mucous membranes moist Neck: Present: neck supple, trachea midline, Other (right IJ PermCath in place) . Absent: JVD/HJR, Masses Respiratory: Clear to Ascultation Heart: regular, normal heart rate, S1S2, no murmurs Gastrointestinal: Present: normal, normoactive bowel sounds Integumentary: no rash, warm and dry, other (no edema. Patient has AV access in both his arms. He does have a fistula in his right forearm which has a good bruit and thrill) Results - Lab Results 05/17/17 12:34 05/16/17 23:39 Most recent lab results Calcium 9.4 mg/dL (8.4-10.2) 05/16/17 23:39 Assessment and Plan Impression * End-stage renal disease on maintenance hemodialysis * Bleeding from PermCath site * Blood loss anemia * Coagulopathy * HIV disease * Hypertension Recommendations * Shall arrange for hemodialysis today * Keep him on Mondays, Wednesdays and Fridays schedule as outpatient * Transfused 2 units of packed RBC with dialysis * Patient's INR is quite elevated. Shall not give any heparin with dialysis * Asdjust diet and meds for ESRD state * Avoid nephrotoxins * Binders with diet * Thank you very much for the consultation. She'll follow along with you
[2017-05-17] MEDS ORDERED: NACL 0.9% 100 ML IV PRN (13:19)
[2017-05-17 13:20] LABS: INR 3.2 (0.87-1.13)
[2017-05-17] MEDS ORDERED: NACL 0.9 (PRIMING MACHINE ONLY DIALYSIS) MC ONE (16:39)
[2017-05-17] MEDS ORDERED: SENOKOT PO SCH (22:00)
[2017-05-18 05:11] LABS: Basophils % (Auto) 1.8 % (0.0-1.8); Eosinophils % (Auto) 4.1 % (0.0-4.3); Hematocrit 26.4 % (35.5-45.6); Hemoglobin 8.9 gm/dl (11.8-15.2); Mean Corpuscular HGB Conc 34 % (32-34); Mean Corpuscular Hemoglobin 32 pg (28-32); Mean Corpuscular Volume 94 fl (84-94); Platelet Count 178 K/mm3 (140-440); Red Blood Count 2.81 M/mm3 (3.65-5.03); Red Cell Distribution Width 18.3 % (13.2-15.2); White Blood Count 6.2 K/mm3 (4.5-11.0)
[2017-05-18] MEDS: APRESOLINE PO SCH (05:31)
[2017-05-18 05:35] LABS: Albumin 3.1 g/dL (3.9-5); Albumin/Globulin Ratio 0.7 %; Bilirubin,Total 0.5 mg/dL (0.1-1.2); Calcium 9.3 mg/dL (8.4-10.2); Chloride 99.2 mmol/L (98-107); Potassium 3.7 mmol/L (3.6-5.0); Total Protein 7.6 g/dL (6.3-8.2)
[2017-05-18 05:50] LABS: INR 1.95 (0.87-1.13)
--- NOTE | 2017-05-18 09:14 | Discharge Summary ---
Providers - Providers Date of Admission: 05/17/17 05:42 Date of discharge: 05/18/17 Attending physician: MICHELE DE LOS SANTOS 05/17/17 07:24 Consult to Physician [CONS] Routine Consulting Provider: RA MICHAEL Reason For Exam: ESRD Place consult to:: [facility] Notified:: yes Phone number called:: [phone] Was contact made?: Yes If yes, spoke with:: Dr. Michael Time called:: 01:35 Comment:: Dr. Guerra spoke to Dr. Francisco dao 05/17/17 07:25 Consult to Physician [CONS] Routine Consulting Provider: JORDY COTTO Reason For Exam: Bleeding from permcath, high INR on Coumadin Place consult to:: [facility] Notified:: yes Phone number called:: [phone] Was contact made?: Yes If yes, spoke with:: Dr. Guerra spoke to Dr. Cotto Time called:: 02:57 Primary care physician: CHRISTOPHER HURTADO Hospitalization Condition: Fair Disposition: DC/[place]-03 SNF [facility] - Discharge Diagnoses (1) Diabetes mellitus type 2 in nonobese Status: Acute (2) Bleeding on Coumadin Status: Acute (3) ESRD (end stage renal disease) Status: Acute (4) HIV (human immunodeficiency virus infection) Status: Acute Core Measure Documentation - Palliative Care Palliative Care/ Comfort Measures: Not Applicable - Core Measures Any of the following diagnoses?: none Exam - Constitutional Vitals: Temp Pulse Resp BP Pulse Ox 98.9 F 72 18 182/79 100 05/18/17 08:00 05/18/17 08:00 05/18/17 08:00 05/18/17 08:00 05/18/17 08:00 General appearance: Present: no acute distress Plan Activity: no restrictions Diet: low salt, renal Additional Instructions: 1.Follow up with Physician at [facility] in 3-5 days. 2.Continue Routine hemodialysis as scheduled. 3.Check INR on Saturday05/20/17 to be followed by Physician at [facility] Follow up with: CHRISTOPHER HURTADO MD [Primary Care Provider] - 7 Days
[2017-05-18] MEDS: IMDUR PO SCH (10:55)
[2017-05-18] MEDS: COREG PO SCH (10:59)
[2017-05-18] MEDS: BABY ASPIRIN PO SCH (10:59)
[2017-05-18] MEDS: CORDARONE PO SCH (10:59)
[2017-05-18] MEDS: SENSIPAR PO SCH (10:59)
[2017-05-18] MEDS: NORVASC PO SCH (11:00)
[2017-05-18] MEDS: PROTONIX PO SCH (11:00)
--- NOTE | 2017-05-18 12:00 | Progress Note ---
Assessment and Plan Impression * End-stage renal disease on maintenance hemodialysis * Bleeding from PermCath site * Blood loss anemia * Coagulopathy * HIV disease * Hypertension Recommendations * Patient is status post packed RBC transfusion * Uneventful hemodialysis yesterday * Keep him on Mondays, Wednesdays and Fridays schedule as outpatient * No further bleeding from PermCath site * Asdjust diet and meds for ESRD state * Avoid nephrotoxins * Binders with diet * Discharge plans noted. Patient advised to go for his regular scheduled dialysis on Saturday Subjective Date of service: 05/18/17 Interval history: Patient is comfortable. Uneventful hemodialysis yesterday. Patient is anxious to go home Objective - Vital Signs Vital signs: Vital Signs - 12hr 05/18/17 08:00 Temperature 98.9 F Pulse Rate 72 Respiratory 18 Rate Blood Pressure 182/79 O2 Sat by Pulse 100 Oximetry - General Appearance General appearance: well-developed, well-nourished, appears stated age EENT: PERRL, mucous membranes moist Neck: no JVD, no thyromegaly, no carotid bruit, supple, other (right IJ PermCath in place . No bleeding) Respiratory: Present: Clear to Ascultation Cardiology: regular, normal heart rate, S1S2, no murmurs Gastrointestinal: normal, normoactive bowel sounds Integumentary: other (no edema) - Lab 05/18/17 04:48 05/18/17 04:48 Most recent lab results Calcium 9.3 mg/dL (8.4-10.2) 05/18/17 04:48
[2017-05-18 14:57] VITALS: BP 159/63
[2017-05-22] MEDS ORDERED: VIREAD PO SCH (10:00)
== END 2017-05-18 15:00 | DRG 314 ==
LOC: ED 22:53 → 3A 05-17 05:42
PROVIDERS: ADMIT Internal Medicine Geriatric Medicine; ATTEND Internal Medicine
PROC: 30233L1 Transfusion of Nonautologous Fresh Plasma into Peripheral Vein, Percutaneous Approach (ICD-10-PCS; principal; 2017-05-17)
PROC: 30233N1 Transfusion of Nonautologous Red Blood Cells into Peripheral Vein, Percutaneous Approach (ICD-10-PCS; 2017-05-17)
PROC: 30233K1 Transfusion of Nonautologous Frozen Plasma into Peripheral Vein, Percutaneous Approach (ICD-10-PCS; 2017-05-17)
PROC: 5A1D60Z (ICD-10-PCS; 2017-05-17)
DX: T82.838A Hemorrhage due to vascular prosthetic devices, implants and grafts, initial encounter (principal); N18.6 End stage renal disease; B20 Human immunodeficiency virus [HIV] disease; D50.9 Iron deficiency anemia, unspecified; E78.5 Hyperlipidemia, unspecified; K70.9 Alcoholic liver disease, unspecified; I50.9 Heart failure, unspecified; E11.22 Type 2 diabetes mellitus with diabetic chronic kidney disease; K21.9 Gastro-esophageal reflux disease without esophagitis; I13.2 Hypertensive heart and chronic kidney disease with heart failure and with stage 5 chronic kidney disease, or end stage renal disease; I48.0 Paroxysmal atrial fibrillation; D50.0 Iron deficiency anemia secondary to blood loss (chronic); D68.32 Hemorrhagic disorder due to extrinsic circulating anticoagulants; Z79.01 Long term (current) use of anticoagulants; Z79.82 Long term (current) use of aspirin; Z79.899 Other long term (current) drug therapy; Z88.6 Allergy status to analgesic agent; Z99.2 Dependence on renal dialysis; T45.515A Adverse effect of anticoagulants, initial encounter; Y83.8 Other surgical procedures as the cause of abnormal reaction of the patient, or of later complication, without mention of misadventure at the time of the procedure; Y92.89 Other specified places as the place of occurrence of the external cause
CPT/HCPCS: 36415; 36430; 80048; 80053; 80074; 85007; 85014; 85018; 85025; 85027; 85610; 85730; 86850; 86900; 86901; 86920; 93005; 93010; A6021; A9270-GY; J0885; J2270; J2597; J3430; J7030; P9016; P9017

== ENCOUNTER 2017-07-20 14:09 | Emergency (ER) | payer MEDICAID ==
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
[2017-07-20] MEDS ORDERED: PERCOCET 5/325 PO ONE (16:29)
[2017-07-20 16:51] LABS: Basophils % (Auto) 0.7 % (0.0-1.8); Eosinophils % (Auto) 2.7 % (0.0-4.3); Hematocrit 29.3 % (35.5-45.6); Hemoglobin 9.8 gm/dl (11.8-15.2); Mean Corpuscular HGB Conc 33 % (32-34); Mean Corpuscular Hemoglobin 30 pg (28-32); Mean Corpuscular Volume 90 fl (84-94); Platelet Count 150 K/mm3 (140-440); Red Blood Count 3.26 M/mm3 (3.65-5.03); Red Cell Distribution Width 16.4 % (13.2-15.2); White Blood Count 5.8 K/mm3 (4.5-11.0)
[2017-07-20 17:01] LABS: INR 1.03 (0.87-1.13)
[2017-07-20 17:02] LABS: Partial Thromboplastin Time 34.2 Sec. (24.2-36.6)
[2017-07-20 17:05] LABS: Albumin 3.9 g/dL (3.9-5); Albumin/Globulin Ratio 0.8 %; Bilirubin,Total 0.4 mg/dL (0.1-1.2); Calcium 9.7 mg/dL (8.4-10.2); Potassium 4.7 mmol/L (3.6-5.0); Total Protein 8.8 g/dL (6.3-8.2)
[2017-07-20] MEDS ORDERED: ZOFRAN IM ONE (17:39)
[2017-07-20] MEDS ORDERED: DILAUDID IM ONE (17:39)
[2017-07-20 18:33] VITALS: BP 203/73
--- NOTE | 2017-07-20 18:34 | XRay Report ---
FINAL REPORT PROCEDURE: XR ELBOW 1V LT TECHNIQUE: Single lateral view of the left elbow is obtained HISTORY: fall INJURY. LT ELBOW COMPARISON: Humerus x-ray from same day FINDINGS: Soft tissue swelling is seen. Few soft tissue calcifications are seen anteriorly. No obvious fracture or dislocation is seen on this single image. IMPRESSION: Soft tissue swelling is seen without evidence of fracture. CT evaluation may be useful if concern persists.
--- NOTE | 2017-07-20 18:36 | XRay Report ---
FINAL REPORT PROCEDURE: XR HUMERUS 1V LT TECHNIQUE: AP view of the left humerus is obtained HISTORY: LT HUMERUS INJURY/FALL COMPARISON: No prior studies are available for comparison. FINDINGS: Soft tissue swelling is seen in the elbow. No humerus fracture or dislocation is identified on this single view. IMPRESSION: No fracture is seen on this single view.
== END 2017-07-20 18:40 | disposition home or self-care (01) ==
LOC: ED 14:09
DX: S50.02XA Contusion of left elbow, initial encounter (principal); S50.12XA Contusion of left forearm, initial encounter; Y99.8 Other external cause status; Z79.82 Long term (current) use of aspirin; Z88.8 Allergy status to other drugs, medicaments and biological substances; W17.89XA Other fall from one level to another, initial encounter; Y93.89 Activity, other specified; Y92.89 Other specified places as the place of occurrence of the external cause; I12.0 Hypertensive chronic kidney disease with stage 5 chronic kidney disease or end stage renal disease; N18.6 End stage renal disease; I50.9 Heart failure, unspecified
CPT/HCPCS: 36415; 73060; 73070; 80053; 85025; 85610; 85730; 96372; 99284; J1170; J2405